=== PATIENT | male | born 1955 | race Caucasian/White ===

== ENCOUNTER 2020-10-02 13:14 | Observation (INO) ==
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
[~2020-10-02 13:14] MED LIST: ACETAMINOPHEN 500 MG TAB PO SCH; BUPIVACAINE 0.5 % 5 MG/1 ML PF 10ML VIAL ONE; FAMOTIDINE 20 MG TAB PO SCH; GABAPENTIN 300 MG CAP PO SCH; LR 15ML/HR IV SCH; METOCLOPRAMIDE HCL 10 MG TABLET PO SCH; ROPIVACAINE 0.5% 5 MG/ML 30 ML VIAL ONE; ROPIVACAINE 0.5% HCL/PF 150 MG, BUPIVACAINE 0.75% MPF 20 ML, EPINEPHrine 30MG/30ML (OR ... INFIL SCH; TRANEXAMIC ACID 1,000 MG **IV Intra-op IV SCH; TRANEXAMIC ACID 1,000 MG **IV Pre-op IV SCH; ceFAZolin 2000MG 2,000 MG/15 ML SYR IV SCH; ceFAZolin 3,000 MG in DEXTROSE 5% 50 ML IV SCH; dexAMETHasone 4 MG TAB PO SCH
[2020-10-02] MEDS ORDERED: MIDAZOLAM HCL 1 MG/ML 2ML VIAL ONE (13:23)
[2020-10-02] MEDS ORDERED: fentaNYL citrate 100 MCG/2 ML VIAL ONE (13:23)
[2020-10-02] MEDS ORDERED: LIDOCAINE HCL 2% 2 ML VIAL/AMP(20MG/ML) INFIL ONE (13:24)
[2020-10-02] MEDS ORDERED: PROPOFOL IV EMULSION 10 MG/ML 20 ML VIAL IV ONE (13:24)
[2020-10-02] MEDS ORDERED: ePHEDrine sulfate 50 MG/ML SYR ONE ×2 (13:24→15:33)
[2020-10-02] MEDS ORDERED: ceFAZolin 3000MG/72.5 ML BAG IV ONE (13:43)
--- NOTE | 2020-10-02 14:29 | History & Physical Bridge Note ---
Date of Service October 02, 2020 History & Physical Bridge Note I have examined the patient, reviewed the History & Physical and in the interval since the performance of the History & Physical I have noted the following changes of clinical significance: no changes noted
[2020-10-02] MEDS ORDERED: BACITRACIN INJ 50,000 UNIT VIAL ONE (14:37)
[2020-10-02] MEDS ORDERED: ORTHO JOINT ANESTHETIC ONE (14:43)
[2020-10-02] MEDS ORDERED: ePHEDrine sulfate 50 MG/ML AMP IV PRN (14:45)
[2020-10-02] MEDS ORDERED: fentaNYL citrate 100 MCG/2 ML VIAL IV PRN (14:45)
[2020-10-02] MEDS ORDERED: ONDANSETRON INJ 2 MG/ML 2 ML VIAL IV PRN ×2 (14:45→19:46)
[2020-10-02] MEDS ORDERED: ATROPINE SULFATE 0.1 MG/ML 10ML SYR IV PRN (14:45)
[2020-10-02] MEDS ORDERED: METOCLOPRAMIDE HCL INJ 5 MG/ML 2 ML VIAL IV PRN ×2 (14:45→19:46)
[2020-10-02] MEDS ORDERED: PROMETHAZINE HCL 12.5 MG in SODIUM CHLORIDE 0.9% 50 ML IV PRN (14:45)
[2020-10-02] MEDS ORDERED: HYDROmorphone INJ 2 MG/ML SYR/VIAL IV PRN (14:45)
[2020-10-02] MEDS ORDERED: HYDROmorphone INJ 2 MG/ML SYR/VIAL ONE (15:32)
[2020-10-02] MEDS ORDERED: DEXAMETHASONE SOD INJ 4 MG/ML VIAL ONE (15:33)
[2020-10-02] MEDS ORDERED: ONDANSETRON INJ 2 MG/ML 2 ML VIAL ONE (15:33)
[2020-10-02] MEDS ORDERED: GLYCOPYRROLATE 0.2 MG/ML VIAL ONE ×2 (15:33→16:44)
[2020-10-02] MEDS ORDERED: NEOSTIGMINE METHYLSULFATE 5 MG/5 ML SYR ONE (15:33)
[2020-10-02] MEDS ORDERED: PHENYLEPHRINE 100MCG/ML 5ML SYR ONE (15:33)
[2020-10-02] MEDS ORDERED: ROCURONIUM BROMIDE 10 MG/ML 5 ML VIAL IV ONE (15:33)
[2020-10-02] MEDS ORDERED: LARYING-O-JET KIT (LTA) ONE (15:49)
[2020-10-02] MEDS ORDERED: PHENYLEPHRINE HCL 10 MG/ML VIAL ONE (16:22)
[2020-10-02] MEDS ORDERED: SUGAMMADEX SODIUM 200 MG/2 ML VIAL IV ONE (17:16)
--- NOTE | 2020-10-02 17:40 | Operative Report ---
Post Operative Report Pre & Post Diagnosis Operation Date: 10/02/20 15:30 Pre-Op Diagnosis: OSTEOARTHRITIS, RIGHT KNEE, morbid obesity BMI 46 Post-Op Diagnosis: OSTEOARTHRITIS, RIGHT KNEE, morbid obesity BMI 46 I identified the patient and participated in the time-out.: Yes Procedure Operation Date: 10/02/20 15:30 Actual Procedures p Right Total Knee Arthroplasty, application superficial wound VAC, increased difficulty BMI 46- Adis Holloway MD Surgeon Adis Holloway MD Threader Operator Martin THURMAN Estimated Blood Loss 20 Findings Consistent with Post-Op Diagnosis Specimens Bone cuts Drains 2 Hemovac Anesthesia Type General Regional Complications none Disposition Accompanied Patient To Recovery: No Disposition: Recovery Room Indications 65-year-old male with severe end-stage osteoarthritis of the right knee failed conservative management. Radiographs demonstrate [id number] medial compartment he has tricompartmental osteoarthritis. Patient is a varus knee. Description of Procedure Patient was taken to the operating room placed supine on the operating table and anesthetized under regional block and general anesthesia. Exam under anesthesia demonstrated 0 through 125 degrees range of motion with large effusion and no pseudolaxity. The patient had an obese leg and had some chronic venous stasis changes distally. A pneumatic tourniquet was placed about the thigh of the obese upper thigh of the right lower extremity. The right lower extremity was prepped and draped in usual fashion. The leg was elevated exsanguinated with an Esmarch bandage and the pneumatic was raised to 350 mm mercury. An anterior incision was made across the right knee. The skin was incised longitudinally subcutaneous flaps were elevated and an incision was made through the medial retinaculum extending up into the mid third of the quadriceps tendon and extended down to the medial tibial tubercle. Intra-articular findings demonstrated tricompartmental osteoarthritis [id number] medial compartment chronic medial meniscus tear. Grade 4 medial facet patellofemoral OA. Multiple loose bodies.. The knee was exposed by excising the infrapatellar fat pad, excising the meniscal remnants, loose bodies and anterior cruciate ligament. Any inflamed synovial tissue was resected. The fat pad over the anterior femur was resected for placement of the component in that area. The lateral synovial bands were release. The femur was exposed. The custom femoral cutting block was pinned in position. The distal femoral cutting block was applied. The distal femoral cut was made with the oscillating saw. The size 10, 4-in-1 cutting block was placed. The anterior and posterior chamfer cuts were made. The knee was extended and a subperiosteal peel lateral release was performed around the patella. The patella width was measured and width was reproduced using freehand cut technique. The 35 x 9 millimeter symmetrical patella was used. 3 drill holes are made for the pegs. The tibia was exposed. A custom tibial cutting block was positioned and drill holes were made for the cutting guide. Cutting guide was placed and the proximal cut was made with the oscillating saw. All osteophytes were resected. The lamina form grader operator was used to assess ligamentous balance and the ligaments were balanced in extension and flexion. The tibia was reexposed and measured for a size G tibial component. I drilled holes into the sclerotic medial tibial plateau to enhance cement fixation. This was externally rotated in line with the tibial tubercle and the fixation pins were drilled. The proximal tibia was fashioned with the drill and punch. The size 10 CR femoral trial was inserted. The trial MC inserts were used. The 11 mm insert gave balanced ligaments through full range of motion. The patella tracked centrally. the trials were removed. The orthomix anesthetic cocktail was injected per protocol. The knee was then copiously irrigated with pulsatile lavage antibiotic solution with bacitracin. The final components were cemented with Simplex cement. The final components were persona 10 standard CR right femur, G tibia, left millimeter MC tibial polyethylene and a 35 x 9 symmetrical polyethylene patella. After the cement cured with the knee in full extension the Betadine soak was used per protocol. The knee joint was copiously irrigated with antibiotic solution with bacitracin. 2 drains were brought out laterally and connected to a Hemovac. The quadriceps tendon and medial retinaculum were closed with interrupted [id number] #1 Vicryl sutures. The knee was taken through a full range of motion and repair was secure. The subcutaneous tissues were closed with 2-0 Vicryl sutures and skin was closed with vicky. Stormy and Acticoat superficial wound VAC was applied and the patient tolerated the procedure well. There was an increased level difficulty due to morbid obesity and this resulted in a 25-minute increase surgical time. Martin THURMAN my physician reading assistant, assisted in soft tissue retraction instrument management leg positioning the closure of subcutaneous tissue and skin and application of superficial wound VAC and will participate in the postoperative care of the patient. I attest to the content of the Intraoperative Record and any orders documented therein. Any exceptions are noted below.
--- NOTE | 2020-10-02 18:17 | Anesthesiology Progress Note ---
Date of Service October 02, 2020 Anesthesia Post Procedure Vital Signs Vital Signs: Temp Pulse Resp BP BP Pulse Ox 10/02/20 18:10 88 14 114/72 99 10/02/20 18:00 94 H 14 115/67 99 10/02/20 17:53 36.7 C 101 H 12 122/60 98 10/02/20 14:10 79 20 144/104 H 96 10/02/20 13:45 36.6 C 90 18 173/97 H 98 Pain Intensity Back: Pain Intensity: 4 Transfer of Care Handoff Completed per policy Notes Mental Status: alert / awake / arousable and participated in evaluation Patient Amnestic to Procedure: Yes Nausea / Vomiting: adequately controlled Pain: adequately controlled Airway Patency, RR, SpO2: stable & adequate BP & HR: stable & adequate Hydration State: stable & adequate Anesthetic Complications: no major complications apparent and Pt Satisfied with anesthetic care
--- NOTE | 2020-10-02 18:18 | XRay Report ---
XR knee RT 1 or 2V routine CLINICAL HISTORY: Surgical Post Op COMPARISON: None. DISCUSSION: There are postsurgical changes of a total right knee arthroplasty and patellar resurfacin g. There are overlying skin vicky and surgical drains. The femoral tibial components appear well se ated. There is gas present within the soft tissues consistent with recent surgery. IMPRESSION: Postsurgical changes of a total right knee arthroplasty. ACT 112: Negative or not required by law. Electronically signed by: Larry Holden M.D. 10/02/2020 6:17 PM
[2020-10-02] MEDS ORDERED: MAGNESIUM HYDROXIDE SUSP 30 ML UDC PO PRN (19:46)
[2020-10-02] MEDS ORDERED: bisacodyL 10 MG SUPP PR PRN (19:46)
[2020-10-02] MEDS ORDERED: FUROSEMIDE 40 MG TAB PO PRN (19:46)
[2020-10-02] MEDS ORDERED: NALOXONE HCL 0.4 MG/1 ML VIAL/CARP IV PRN (19:46)
[2020-10-02] MEDS ORDERED: HYDROmorphone INJ 0.5 MG/0.5 ML SYR IV PRN (19:46)
[2020-10-02] MEDS ORDERED: PNEUMOCOCCAL ADMINISTRATION CHARGE ONE (20:08)
[2020-10-02] MEDS ORDERED: INFLUENZA ADMINISTRATION CHARGE ONE (20:08)
[2020-10-02] MEDS ORDERED: PNEUMOCOCCAL POLYSACCHARIDES 25 MCG/0.5 ML VIAL/SYR IM ONE (20:08)
[2020-10-02] MEDS ORDERED: INFLUENZA VACCINE HIGH DOSE 65+ 0.7 ML SYR IM ONE (20:08)
[2020-10-02] MEDS: oxyCODONE/ACETAMINOPHEN 5mg/325mg TAB PO PRN (21:17)
[2020-10-02] MEDS: oxyCODONE HCL 10 MG TABCR (OxyCONTIN) PO SCH (21:18)
[2020-10-02] MEDS: FLUTICASONE PROPIONATE NA SPR 16 GM BTL SCH (21:18)
[2020-10-02] MEDS: SODIUM CHLORIDE 0.9% 1000ML 1,000 ML IV SCH (21:20)
[2020-10-02] MEDS: DOCUSATE SODIUM 100 MG CAP PO SCH (21:21)
[2020-10-02] MEDS: NORTRIPTYLINE HCL 25 MG CAP PO SCH (21:21)
[2020-10-02] MEDS: SENNA 8.6 MG TAB PO SCH (21:22)
[2020-10-02] MEDS: SIMVASTATIN 20 MG TAB PO SCH (21:23)
[2020-10-02] MEDS: ceFAZolin 2000MG 2,000 MG/15 ML SYR IV SCH (22:15)
[2020-10-03] MEDS: oxyCODONE/ACETAMINOPHEN 5mg/325mg TAB PO PRN ×4 (04:21→23:33)
[2020-10-03] MEDS: SODIUM CHLORIDE 0.9% 1000ML 1,000 ML IV SCH (05:55)
[2020-10-03] MEDS: ceFAZolin 2000MG 2,000 MG/15 ML SYR IV SCH (05:56)
[2020-10-03] MEDS: LEVOTHYROXINE SODIUM 88 MCG TABLET PO SCH (05:56)
[2020-10-03 06:50] LABS: Hematocrit (blood only) 45.5 % (42-52); Mean Corpuscular Hemoglobin 27.5 pg (25-34); Mean Corpuscular Volume 83.3 fL (80-100); Mean Platelet Volume 10.4 fL (7.4-10.4); Platelet Count 207 K/uL (130-400); RDW Coefficient of Variation 14.5 % (11.5-14.5); RDW Standard Deviation 43.7 fL (36.4-46.3); Red Blood Count 5.46 M/uL (4.7-6.1); White Blood Count 13.89 K/uL (4.8-10.8)
--- NOTE | 2020-10-03 07:09 | Orthopedic Progress Note ---
Date of Service October 03, 2020 Assessment & Plan (1) S/P total knee arthroplasty: POD#1 Right TKA -Pain management-OxyContin 10mg BID, Percocet 5/325 Q4-6h -PT/OT -DVT prophylaxis-SCDs, TEDs, Xarelto 10mg daily -AM labs-hemoglobin at 15.1 this morning, chemistry pending -D/C planning-home with OPPT when stable. Will see how he does later today once block starts to wear off and how PT goes. Also will monitor drain output, was 350 overnight and another 75 this morning from [id number]. Admission and Anticipated Discharge Date Admission Date: October 02, 2020 Subjective Patient is POD#1 right TKA. He is doing well this morning, not having much pain. Anxious to go home. Denies complaints. No chest pain, sob, dizziness, headache, n/v/d, fever/chills. Review of Systems Review of Systems: All systems reviewed & are unremarkable except as noted in HPI & below Physical Exam Physical Exam: Right knee dressing is c/d/i. TERRY suctioning, hemovac in place. Toes are mobile with good dorsiflexion. No calf tenderness. Distally n/v status and sensation are intact. Constitutional: well developed and well nourished; no acute distress Results & Data ([facility]) Vital Signs (Past 12 Hours) Vital Signs Temp Pulse Pulse Resp BP Pulse Ox 10/03/20 04:16 37.1 C 105 H 18 143/79 H 96 10/02/20 22:28 37.1 C 116 H 18 134/68 94 10/02/20 21:34 36.5 C 110 H 18 143/79 H 97 10/02/20 20:40 36.7 C 110 H 18 187/93 H 96 10/02/20 20:05 36.5 C 90 18 146/77 H 996 H 10/02/20 19:40 36.7 C 90 16 133/73 96 10/02/20 19:10 37.2 C 88 19 139/84 97 Laboratory Results H & H 10/03/20 Range/Units 05:51 Hgb 15.0 (14.0-18.0) g/dL Hct 45.5 (42-52) % (1) S/P total knee arthroplasty Laterality: right Qualified Code(s): Z96.651 - Presence of right artificial knee joint
[2020-10-03 07:20] LABS: BUN Creatinine Ratio 17.9 (10-20); Creatinine Clr Calc Pharmacy 65.2 ml/min; Est GFR (African American) 55.5; Est GFR (Non-African American) 47.9; Potassium 4.7 mmol/L (3.5-5.1)
[2020-10-03] MEDS: DOCUSATE SODIUM 100 MG CAP PO SCH ×2 (07:48→20:34)
[2020-10-03] MEDS: METOPROLOL SUCC 25MG EXT REL TAB PO SCH (07:48)
[2020-10-03] MEDS: oxyCODONE HCL 10 MG TABCR (OxyCONTIN) PO SCH ×2 (07:48→20:34)
[2020-10-03] MEDS: lisinopril 5 MG TAB PO SCH (07:48)
[2020-10-03] MEDS: MULTIVITAMIN TAB PO SCH (07:48)
[2020-10-03] MEDS: PANTOprazole 40 MG TAB PO SCH (07:48)
[2020-10-03] MEDS: CHOLECALCIFEROL 1,000 UNITS 25 MCG TAB PO SCH (07:49)
[2020-10-03] MEDS: CYANOCOBALAMIN 500 MCG TABLET (VITAMIN B-12) PO SCH (07:49)
[2020-10-03] MEDS: RIVAROXABAN 10 MG TABLET PO SCH (07:49)
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
[2020-10-03] MEDS: SENNA 8.6 MG TAB PO SCH (20:34)
[2020-10-03] MEDS: FLUTICASONE PROPIONATE NA SPR 16 GM BTL SCH (20:34)
[2020-10-03] MEDS: NORTRIPTYLINE HCL 25 MG CAP PO SCH (20:34)
[2020-10-03] MEDS: SIMVASTATIN 20 MG TAB PO SCH (20:34)
[2020-10-03] MEDS ORDERED: DOCUSATE SODIUM 100 MG CAP PO SCH (21:00)
[2020-10-04] MEDS: LEVOTHYROXINE SODIUM 88 MCG TABLET PO SCH (05:33)
[2020-10-04] MEDS: oxyCODONE/ACETAMINOPHEN 5mg/325mg TAB PO PRN (05:33)
[2020-10-04 07:26] LABS: Calcium 7.8 mg/dl (8.5-10.1); Creatinine Clr Calc Pharmacy 73.1 ml/min; Est GFR (African American) 63.7; Est GFR (Non-African American) 54.9; Potassium 4.3 mmol/L (3.5-5.1)
[2020-10-04] MEDS ORDERED: KETOROLAC TROMETHAMINE 15 MG/ML VIAL IM STA (07:52)
--- NOTE | 2020-10-04 07:59 | Orthopedic Progress Note ---
Date of Service October 04, 2020 Assessment & Plan (1) S/P total knee arthroplasty: POD#2 Right TKA -Pain management-OxyContin 10mg BID, Percocet 5/325 Q4-6h. Will add one dose of Toradol 15mg. -PT/OT -DVT prophylaxis-SCDs, TEDs, Xarelto 10mg daily -AM labs-creatinine at baseline at 1.3 -D/C planning-home with OPPT when stable. Will see how he does later today if pain better controlled, possible discharge today. Admission and Anticipated Discharge Date Admission Date: October 02, 2020 Subjective Patient is POD#2 right TKA. He is having a lot of pain this morning. states he had a rough night. He is on scheduled OxyContin, Percocet, and Dilaudid prn. Denies other complaints. No chest pain, sob, dizziness, headache, n/v/d, fever/chills. Review of Systems Review of Systems: All systems reviewed & are unremarkable except as noted in HPI & below Physical Exam Physical Exam: Right knee dressing is c/d/i. TERRY suctioning, hemovac in place. Toes are mobile with good dorsiflexion. No calf tenderness. Distally n/v status and sensation are intact. Constitutional: well developed and well nourished; no acute distress Results & Data ([facility]) Vital Signs (Past 12 Hours) Vital Signs Temp Pulse Resp BP Pulse Ox 10/04/20 00:19 36.7 C 80 18 131/70 94 (1) S/P total knee arthroplasty Laterality: right Qualified Code(s): Z96.651 - Presence of right artificial knee joint
[2020-10-04] MEDS: CYANOCOBALAMIN 500 MCG TABLET (VITAMIN B-12) PO SCH (08:20)
[2020-10-04] MEDS: oxyCODONE HCL 10 MG TABCR (OxyCONTIN) PO SCH (08:20)
[2020-10-04] MEDS: CHOLECALCIFEROL 1,000 UNITS 25 MCG TAB PO SCH (08:20)
[2020-10-04] MEDS: MULTIVITAMIN TAB PO SCH (08:21)
[2020-10-04] MEDS: RIVAROXABAN 10 MG TABLET PO SCH (08:21)
[2020-10-04] MEDS: PANTOprazole 40 MG TAB PO SCH (08:21)
[2020-10-04] MEDS: lisinopril 5 MG TAB PO SCH (08:21)
[2020-10-04] MEDS: METOPROLOL SUCC 25MG EXT REL TAB PO SCH (08:23)
[2020-10-04] MEDS: DOCUSATE SODIUM 100 MG CAP PO SCH (08:23)
[2020-10-04] MEDS: ACETAMINOPHEN 500 MG TAB PO SCH ×2 (09:45→13:51)
[2020-10-04] MEDS: oxyCODONE HCL IR 5 MG TAB (IMMEDIATE RELEASE) PO PRN ×2 (11:35→11:59)
--- NOTE | 2020-10-04 15:15 | Discharge Summary ---
Date of Service October 04, 2020 Admission HPI Per Admitting Provider 65 year old male with PMHx significant for HTN, high cholesterol, GERD, CKD3, lumbar pain on chronic pain medication presents with longstanding right knee pain. Pain is interfering with his ability to carry out normal daily activity. He has failed conservative measures including antiinflammatories and injections. He would like to proceed with right knee replacement. Patient denies headaches, sweats, fevers, chills, double vision, blurred vision, cough, sore throat, dysphagia, chest pain, sob, wheezing, n/v/d/c, numbness, tingling, fatigue, urinary symptoms, mood disorders. ROS positive for right knee pain and stiffness. Admission Exam Per Admitting Provider Constitutional: well developed and well nourished; no acute distress Eyes: PERRL, conjunctivae normal, anicteric sclerae ENMT: external ear and nose normal, oropharynx normal Neck: trachea midline, no thyromegaly Respiratory: normal respiratory effort, lungs clear to auscultation Cardiovascular: RRR, no murmur, no edema Musculoskeletal: Right knee: Tenderness medial joint line, mild effusion. ROM 0-135 degrees, stable to valgus and varus stress tests. Positive Tiffanie's Skin: no rashes, warm and dry Neurologic: patellar DTR's 2+ bilat, sensation intact Psychiatric: A+Ox3, euthymic affect Principal Diagnosis Right knee osteoarthritis, obesity, CKD, chronic back pain on chronic narcotic pain medication Discharge Exam Constitutional well developed and well nourished; no acute distress Eyes PERRL, conjunctivae normal, anicteric sclerae ENMT external ear and nose normal, oropharynx normal Neck trachea midline, no thyromegaly Respiratory normal respiratory effort, lungs clear to auscultation Cardiovascular RRR, no murmur, no edema Skin no rashes, warm and dry Neurologic patellar DTR's 2+ bilat, sensation intact Psychiatric A+Ox3, euthymic affect Discharge Data Allergies Allergy/AdvReac Type Severity Reaction Status Date / Time aspartame Allergy Severe Migraine Verified 10/02/20 13:28 atorvastatin [From Lipitor] Allergy Severe Headache Verified 10/02/20 13:28 ciprofloxacin [From Cipro] Allergy Severe GI UPSET Verified 10/02/20 13:28 sulfamethoxazole Allergy Severe Headache Verified 10/02/20 13:28 [From Bactrim] trimethoprim [From Bactrim] Allergy Severe Headache Verified 10/02/20 13:28 Consultations 09/27/20 12:29 Consult Hospitalist Routine 10/02/20 19:46 Consult Case Management - Discharge Planning Routine Procedures Performed Operation Date: 10/02/20 15:30 Actual Procedures p Right Total Knee Arthroplasty - Adis Holloway MD Ordered Studies 10/02/20 05:00 US - OR guided needle placemen Routine Hospital Course (1) S/P total knee arthroplasty: Patient presented for same day admission following right total knee arthroplasty on 10/02/20. He tolerated procedure well. The Patient had an uneventful hospital course. Post-operatively, his activity was progressed and well tolerated. They participated in PT with ambulation distance of 225 feet on POD#1 and 160 feet on POD#2. ROM of operative knee reached 70 degrees. Labs remained stable- lowest hemoglobin recorded: 15. [facility] were consulted for medical management during admission. On POD#2 he was having significant increase in knee pain. Added dose of Toradol and adjusted his pain medication, which helped. His pain controlled on oral medications. Please refer to daily progress notes and PT notes for complete details. After exam on , patient was felt to be stable for discharge home with plans for outpatient PT. Patient will f/u in the office in about 2 weeks for further evaluation including x-rays and incision check, sooner if having any issues or concerns. POD#2 Right TKA -Pain management-OxyContin 10mg BID, Percocet 5/325 Q4-6h. Will add one dose of Toradol 15mg. -PT/OT -DVT prophylaxis-SCDs, TEDs, Xarelto 10mg daily -AM labs-creatinine at baseline at 1.3 -D/C planning-home with OPPT when stable. Will see how he does later today if pain better controlled, possible discharge today. Lab Results 09/26/20 10/03/20 10/03/20 Range/Units 12:17 05:51 05:51 WBC 13.89 H (4.8-10.8) K/uL RBC 5.46 (4.7-6.1) M/uL Hgb 15.0 (14.0-18.0) g/dL Hct 45.5 (42-52) % MCV 83.3 (80-100) fL MCH 27.5 (25-34) pg MCHC 33.0 (32-36) g/dL RDW Std Deviation 43.7 (36.4-46.3) fL RDW Coeff of Jewel 14.5 (11.5-14.5) % Plt Count 207 (130-400) K/uL MPV 10.4 (7.4-10.4) fL Sodium (136-145) mmol/L Potassium (3.5-5.1) mmol/L Chloride (98-107) mmol/L Carbon Dioxide (21-32) mmol/L Anion Gap (3-11) BUN (7-18) mg/dl Creatinine (0.6-1.4) mg/dl Est Cr Clr Drug Dosing ml/min Est GFR ( Amer) Est GFR (Non-Af Amer) BUN/Creatinine Ratio (10-20) Glucose (70-99) mg/dl Calcium (8.5-10.1) mg/dl Hepatitis C Ab Screen Neg (Neg) Blood Type B Positive Antibody Screen NEGATIVE 10/03/20 10/04/20 Range/Units 05:51 05:59 WBC (4.8-10.8) K/uL RBC (4.7-6.1) M/uL Hgb (14.0-18.0) g/dL Hct (42-52) % MCV (80-100) fL MCH (25-34) pg MCHC (32-36) g/dL RDW Std Deviation (36.4-46.3) fL RDW Coeff of Jewel (11.5-14.5) % Plt Count (130-400) K/uL MPV (7.4-10.4) fL Sodium 136 137 (136-145) mmol/L Potassium 4.7 4.3 (3.5-5.1) mmol/L Chloride 105 105 (98-107) mmol/L Carbon Dioxide 26 29 (21-32) mmol/L Anion Gap 5.0 3.0 (3-11) BUN 27 H 28 H (7-18) mg/dl Creatinine 1.49 H 1.33 (0.6-1.4) mg/dl Est Cr Clr Drug Dosing 65.2 73.1 ml/min Est GFR ( Amer) 55.5 63.7 Est GFR (Non-Af Amer) 47.9 54.9 BUN/Creatinine Ratio 17.9 21.0 H (10-20) Glucose 129 H 94 (70-99) mg/dl Calcium 8.0 L 7.8 L (8.5-10.1) mg/dl Hepatitis C Ab Screen (Neg) Blood Type Antibody Screen Total Time Total Time Spent Total Time Spent (In Minutes): 20 Discharge Plan Discharge Items Patient Disposition: Home - Self-Care Reason For Visit: OSTEOARTHRITIS, RIGHT KNEE Discharge Diagnosis: Righ tknee osteoarthritis Activity: Per Instructions section Non-emergency contact: Surgeon Call non-emergency contact if: you have any medication questions, your pain is not controlled, your pain is worsening, your pain is concerning for you, you have a fever, your temperature is above 101, your wound has increased redness and your wound has increased drainage Follow-up/Referrals: Keith Guerrero [Primary Care Provider] - Diet: Regular Addtl Attending Provider Instructions: ACTIVITY RECOMMENDATIONS: SELF CARE INSTRUCTIONS AFTER TOTAL KNEE REPLACEMENT A. You may need to continue a physical therapy program after discharge from the hospital. There are several options available to you. Your doctor will assist you in selecting the best one for you. 1. An out-patient facility 2 to 3 times a week for therapy or home therapy. 2. Continue working on all exercises taught to you in the hospital. Your goals should be to increase bending of your knee to 90 degrees and beyond and to fully straighten your knee. B. You may progress at your own pace from walking with a walker or crutches to a cane; then to no assistive devices. C. Make walking a part of your daily routine. Be up as much as comfortable with rest periods throughout the day. Rest with leg elevation is very important. Use the ice wrap frequently for the first 3-4 weeks. D. There are no restrictions on activities. 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 E. Wear the long elastic stockings (ANNA hose) 20 hours a day for 2 weeks after surgery. They can be removed several times a day for laundering and for a bath. F. You may shower, no tub baths until cleared by your doctor. SPECIAL CARE INSTRUCTIONS: VERY IMPORTANT TO READ AND REVIEW A. There are a few signs you need to watch for after you are home. Call [facility] if you notice any of the followin. Increased severe knee pain. Some pain is expected especially when you exercise. 2. Increased swelling in your leg or knee; pain or swelling of the calf muscle in either lower leg. 3. Any fluid drainage from the incision. 4. Shortness of breath or chest pain. B. Please call [facility] at if you have any concerns or questions about your operation or recovery. The doctor or his nurse will return your call promptly. C. You must take antibiotics before dental work, bladder, bowel or other surgery. Your doctor will provide you with a permanent care to carry describing this precaution. IMPORTANT: * REMEMBER TO TAKE ASPIRIN, 81 MG, TWICE DAILY FOR 4 WEEKS UNLESS OTHERWISE DIRECTED. THIS IS YOUR BLOOD THINNER. * HIGH RISK PATIENTS MAY BE PRESCRIBED A STRONGER BLOOD THINNER. THIS WILL BE PROVIDED AT DISCHARGE. * CALL IF INCREASED PAIN, REDNESS, DRAINAGE OR FEVER GREATER THAT 101. * WEAR ANNA HOSE 20 HOURS PER DAY FOR 2 WEEKS. This is a large suction dressing covering your incision. This will help pull any excess drainage from the wound and allow your incision to heal properly. You may shower with this if you can keep the unit outside of the shower. If any bleeding or leakage is noted please call your doctor's office. This will remain on your incision for 7 days and then should be removed. This can be done yourself or by the home nursing staff if applicable. The entire unit is disposable once removed. Once removed, keep incision clean and dry. If redness or drainage is noted, please call your surgeon. FOLLOW UP VISIT: If appointment is not already scheduled: Please call [facility] to make a follow-up appointment for 2 weeks after your surgery at . Pending Studies at Discharge: No Stand-Alone Forms: My [employer], Opioid Pain Management, Smoking Cessation Medications and DC Order Prescriptions: New oxycodone [OxyContin] 10 mg Tablet,Oral Only,Ext.Rel.12 Hr 10 mg PO Q12 Qty: 10 RF: 0 Xarelto 10 mg Tablet 10 mg PO DAILY Qty: 30 RF: 0 naloxone 4 mg/actuation spray,non-aerosol 1 spray intranasal Q3M PRN (Reason: opioid overdose) Qty: 2 RF: 0 acetaminophen 500 mg tablet 1,000 mg PO Q8H Qty: 60 RF: 0 oxycodone 5 mg tablet 5 - 10 mg PO .Q4h-6h MDD 6 PRN (Reason: pain) Qty: 30 RF: 0 Continued lisinopril 5 mg tablet 5 mg PO QAM RF: 0 levothyroxine 88 mcg tablet 88 mcg PO QAM RF: 0 simvastatin 20 mg tablet 20 mg PO HS RF: 0 fluticasone propionate [Flonase Allergy Relief] 50 mcg/actuation spray,suspension 2 sprays INTNAS HS RF: 0 tadalafil [Cialis] 10 mg tablet 10 mg PO Q36H PRN (Reason: sexual activity) RF: 0 pantoprazole 40 mg tablet,delayed release (DR/EC) 40 mg PO QAM RF: 0 mecobalamin (vitamin B12) 1,000 mcg tablet,disintegrating 1,000 mcg SL QAM RF: 0 furosemide 40 mg tablet 40 mg PO DAILY PRN (Reason: ud) RF: 0 testosterone cypionate 300 mg IM .Q2W RF: 0 nortriptyline [Pamelor] 25 mg capsule 50 mg PO HS RF: 0 metoprolol succinate 25 mg tablet extended release 24 hr 25 mg PO QAM RF: 0 cholecalciferol (vitamin D3) 125 mcg (5,000 unit) capsule 5,000 units PO QAM RF: 0 Discontinued oxycodone-acetaminophen 5-325 mg tablet 1 tab PO .Q4-6H PRN (Reason: pain) RF: 0 nabumetone 500 mg tablet 500 mg PO BID PRN (Reason: Pain) RF: 0 ibuprofen 200 mg Tablet 200 mg PO Q6H PRN (Reason: Pain) RF: 0 Discharge Orders: Discharge Order (Routine); Ordered 10/04/20 Ordered By: Prateek Rosado/Other Patient Handouts: DVT Post Op Prevention, Preventing Deep Vein Thrombosis Admission Data Admit Date/Time: 10/02/20 17:52 Attending Provider: Adis Holloway Admit Provider: Adis Holloway Primary Care Provider: Keith Guerrero Other Providers: Dl Barajas. Other Interventions: Discharge Summary Assessment (RN) Last Done: 10/04/20 13:20
== END 2020-10-04 14:22 | disposition home or self-care (01) ==
LOC: 3N 13:14 → ASU 13:14

== ENCOUNTER 2023-10-27 05:14 | Observation (INO) ==
--- NOTE | 2023-09-10 12:06 | PAT Medication Instructions ---
Medication Instructions Date of Service September 10, 2023 Home Medications Medication Instructions Recorded naloxone 4 mg/actuation nasal spray 1 spray intranasal Q3M PRN opioid 10/04/20 overdose #2 ea mecobalamin (vitamin B12) 1,000 mcg disintegrating tablet,sublingual 1,000 mcg sublingual QAM pantoprazole 40 mg tablet,delayed release 40 mg PO QAM simvastatin 20 mg tablet 20 mg PO HS tadalafil 10 mg tablet (Cialis) 10 mg PO Q36H PRN sexual activity testosterone cypionate 300 mg IM .Q2W cholecalciferol (vitamin D3) 125 mcg (5,000 unit) capsule 5,000 units PO QAM metoprolol succinate 25 mg tablet,extended release 24 hr 37.5 mg PO QAM naloxone 4 mg/actuation nasal spray 1 spray intranasal Q3M PRN opioid overdose levothyroxine 175 mcg tablet 175 mcg PO QAM nortriptyline 25 mg capsule (Pamelor) See Rx Instructions PO HS PRN neuropathy semaglutide 0.25 mg or 0.5 mg (2 mg/1.5 mL) subcutaneous pen injector (Ozempic) 0.5 mg subcut .COMPLEX amlodipine 2.5 mg tablet 2.5 mg PO QAM lisinopril 5 mg tablet 5 mg PO BID oxycodone 10 mg tablet 10 mg PO Q4H Continue as directed naloxone 4 mg/actuation nasal spray 1 spray intranasal Q3M PRN opioid overdose (if needed) testosterone cypionate 300 mg IM .Q2W ASK your prescriber and surgeon nortriptyline 25 mg capsule (Pamelor) See Rx Instructions PO HS PRN neuropathy DO NOT take the morning of surgery mecobalamin (vitamin B12) 1,000 mcg disintegrating tablet,sublingual 1,000 mcg sublingual QAM tadalafil 10 mg tablet (Cialis) 10 mg PO Q36H PRN sexual activity cholecalciferol (vitamin D3) 125 mcg (5,000 unit) capsule 5,000 units PO QAM lisinopril 5 mg tablet 5 mg PO BID Take morning of surgery With a small sip of water, OTHERWISE NOTHING TO EAT OR DRINK AFTER MIDNIGHT: pantoprazole 40 mg tablet,delayed release 40 mg PO QAM metoprolol succinate 25 mg tablet,extended release 24 hr 37.5 mg PO QAM levothyroxine 175 mcg tablet 175 mcg PO QAM amlodipine 2.5 mg tablet 2.5 mg PO QAM oxycodone 10 mg tablet 10 mg PO Q4H Take evening before surgery simvastatin 20 mg tablet 20 mg PO HS tadalafil 10 mg tablet (Cialis) 10 mg PO Q36H PRN sexual activity (if needed) lisinopril 5 mg tablet 5 mg PO BID oxycodone 10 mg tablet 10 mg PO Q4H STOP 7 days prior to surgery semaglutide 0.25 mg or 0.5 mg (2 mg/1.5 mL) subcutaneous pen injector (Ozempic) 0.5 mg subcut .COMPLEX Other Notes If you have any questions please call us at [phone] or [phone] or [phone] or [phone]
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
--- OUTSIDE RECORDS SUMMARY | 2023-10-27 05:36 | External Medical Summary | Continuity of Care Document ---
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 Name Role Phone Urology - Urology Care Team Information Sort Worker Unavailable Wai Morris Care Team Information Sort Worker + [phone] Nephrology - Nephrology Care Team Information Re ceiver Unavailable Michel Nascimento MD Care Team Information Sort Worker [phone] Problems Active Problems Provider Date Obesity Keith Guerrero JR, DO Onset: 06/01/2015 Benign prostatic hyperplasia with outflow obstruction Keith Guerrero JR DO Onset: 06/01/2015 Mixed hyperlipidemia Keith Guerrero JR DO On set: 06/01/2015 Disorder of adrenal gland Keith Guerrero JR DO Onset: 03/06/2016 Idiopathic peripheral neuropathy Keith leong JR, DO Onset: 09/18/2016 Anemia Keith Guerrero JR DO Onset: 09/18/2016 Vitamin D deficiency Keith Guerrero JR, DO On set: 09/18/2016 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 Keith Guerrero JR DO Onset: 10/20/2017 Testicular hypofunction Keith Guerrero JR DO Onset: 02/18/2018 Hypothyroidism Keith Guerrero JR DO Onset: 02/18/2018 Essential hypertension Keith Guerrero JR DO Onset: 08/25/2018 Glucose level outside reference range Keith Guerrero JR DO Onset: 08/25/2018 Pericardial effusion Jaspal Miller MD Onset: 00 / Note: Document: 11/23/18 - C ardiology Consult Sciatica Keith Guerrero JR, DO Onset: 01/25/2020 Cobalamin deficiency Keith Guerrero JR, DO On set: 06/25/2021 Chronic kidney disease stage 2 Keith Guerrero JR, DO Onset: 10/29/2022 Note: Document: 10/28/22 - N ephrology Consult Metabolic syndrome X Keith Guerrero JR, DO On set: 11/20/2022 Social History Type Date Description Comments Sex Unknown Cigarette Use 09/17/2023 Quit - Age 28 Tobacco Use Reviewed: 09/17/23 Never Smoked Cigars Tobacco Use Reviewed: 09/17/23 Never Smoked A Pipe Smoking Status Reviewed: 09/17/23 Never Smoked A Pipe Smokeless Tobacco 09/17/2023 Never Used Smokeless To bacco ETOH Use Rarely consumes alcohol Recreational Drug Use Denies Drug Use Allergies and adverse reactions Active Allergies Criticality Reaction | Severity Comments Date Cipro Unable to assess criticality 03/08/2021 Bactrim Unable to assess criticality 03/08/2021 Aspartame Unable to assess criticality Nausea, Migraine 02/18/2023 Inactive Allergies NKDA Unable to assess criticality 2014 Medications Active Medications SIG Qnty Indications Order ing Provider Date Vitamin D (Ergocalciferol)5000 0Unit Capsules 1 by mouth weekly 8caps E55.9 Keith Guerrero JR, DO 09/17/2023 Oxycodone HXF15lt Tablets 1 tab by mouth every 4-6 hours as needed - do not exceed 6 per 24 hours (continuing therapy) 60tabs G60.8 Keith Guerrero JR, DO 03/20/2023 Levothyroxine Dpewvf372hyc Tablets Take 1 tablet by mouth once daily 90tabs E03.9 Keith Guerrero JR, DO 09/23/2022 Azelastine HCL (Nasal)0.1% Solution 1-2 squirts intranasal q12 hours 90ml R09.81 Keith Guerrero JR, DO 05/14/2022 Ozempic (0.25 Or 0.5 MG/Dose)2mg/3ML Solution Pen-Inject Inject 0.5MG Subcutaneously Once A Week 3units E88.81 Keith Guerrero JR, DO 06/25/2021 Nortriptyline RPC52nu Capsules take 2-4 capsules by mouth every night at bedtime for neuropathy 360caps G60.8 Keith Guerrero JR, DO 12/28/2019 Wsfpwrpahim25ux Tablets Take 1 tablet by mouth once daily 90tabs E78.2 Keith Guerrero JR, DO 05/27/2019 Yamxnnpq27hzc/0.5ML Suspension Rec one inj intramuscular 1units Keith Guerrero JR, DO 02/03/2019 Fluticasone Mgpcgexfwh25gyu/Act Suspension 2 sprays each nostril once daily 48gm J06.9 Keith Guerrero JR, DO 09/22/2018 Sfgxgc92yn Tablets 1 tablet every 36 hours as needed prior to intercourse 100tabs Reyna Flowers MD, PhD 08/25/[address] take 1 tablet by mouth once daily 90tabs K21.9 Keith Guerrero JR, DO 02/18/2018 Vitamin D3 Maximum Kzzeetpb4898Tbzt Capsules 1 by mouth every day OTC E55.9 Keith Guerrero JR, DO 10/20/2017 Vitamin B-12 [id number] Tablets ER 1 by mouth every day 30tabs D51.9 Mara Guerrero JR, DO 07/23/2016 Testosterone Cypionate 300mg Im q 2 weeks E29.1 Unknown /000 0 Metoprolol Succinate ER25mg Tablets ER 24HR Take 1 & 1/2 (One & One-Half) Tablets By Mouth Once Daily 45tabs I10 Keith Guerrero JR, DO Prbfpfgscc56yv Tablets 1 by mouth every day as needed for edema R60.9 Unknown Knrfrwcyzv2ng Tablets 1 by mouth every day 30tabs I10 Unknown /0 000 Amlodipine Besylate2.5mg Tablets 1 by mouth every day I10 Unknown /0 000 Immunizations CPT Code Status Date Vaccine Lot # [id number] Given 10/01/2021 Influenza Vaccine High Do se 0.5ML Age 65 & > [id number] 92928 Given 09/25/2021 Moderna Covid-1 9 Vaccine 50mcg Booster-EMR Doc Only [id number] 68708 Given 08/24/2021 Shingrix 16070 Given 06/22/2021 Shingrix 63324 Given 01/06/2021 Moderna Sars-Co v-2 (Cov-19) vacc,100 mcg/ 0.5 mL 12Y+EMR Doc Only [id number] 06911 Given 12/07/2020 Moderna Sars-Co v-2 (Cov-19) vacc,100 mcg/ 0.5 mL 12Y+EMR Doc Only [id number] 58326 Given 08/09/2020 Pneumococcal Vaccine/Pneu movax 23 [id number] 70698 Given 08/09/2020 Influenza Vaccine High Do se 0.5ML Age 65 & > [id number] 14579 Given 08/25/2018 Pneumococcal Conjugate-Pr evnar 13 [id number] 91098 Given 08/25/2018 Influenza Vac, Split, Preservative Free High Dose Age 65 & > [id number] 20673 Given 12/15/2017 Tdap (Tetanus, diphtheria & acel. pertussis) Adacel or Boostrix [id number] 58266 Given 07/08/2017 Influenza Virus Vaccine, Quadrivalent, Im Use [id number] 44795 Given 09/18/2016 Influenza Virus Vaccine, Quadrivalent, Im Use [id number] 85580 Given 06/09/2015 Zostavax Vaccine [id number] 27687 Given 06/09/2015 Zostavax-PT Supplied 42081 Given 07/18/2014 Influenza Virus Vaccine, Quadrivalent, Im Use 70400 Refused 09/17/2023 Influenza Vaccine High Do se 0.5ML Age 65 & > [id number] Refused 08/21/2020 Shingrix [id number] Refused 07/08/2017 Tdap (Tetanus, diphtheria & acel. pertussis) Adacel or Boostrix [id number] Refused 05/16/2016 Influenza Virus Vaccine, Quadrivalent, Im Use [id number] Refused 04/18/2016 Influenza Virus Vaccine, Quadrivalent, Im Use 62391 Refused 04/11/2016 Influenza Virus Vaccine, Quadrivalent, Im Use [id number] Refused 06/01/2015 Influenza Virus Vaccine, Quadrivalent, Im Use Vital Signs Date Vital Result Comment 09/17/2023 1:27pm BP Systolic 126 mmHg BP Diastolic 82 mmHg Body Temperature 97.6 F Heart Rate 72 /min Respiratory Rate 16 /min Weight 257.00 lb Weight 116.575 kg 06/04/2023 1:49pm BP Systolic 134 mmHg BP Diastolic 74 mmHg Body Temperature 98.2 F Heart Rate 74 /min Respiratory Rate 16 /min Weight 262.00 lb Weight 118.843 kg Results Test Acquired Date Facility Test Result H/L Range N ote BMP 09/03/2023 [facility] [address] [place], [place] [id number] [phone] Glucose 98 mg/dL 70-110 BUN 33 mg/dL High 6-25 Creatinine 1.7 mg/dL High 0.7-1.3 Sodium 140 mEq/L 135-145 Potassium 4.8 mEq/L 3.5-5.0 Chloride 102 mEq/L 95-107 Co-2 28 mEq/L 24-31 Calcium 9.0 mg/dL 8.5-10.6 GFR 43 ML/MIN/1.73SQM Low >60 Lipid 09/03/2023 [facility] [address] [place], [place] [id number] [phone] Cholesterol 120 mg/dL 0-200 1 Triglyceride 141 mg/dL 0-150 2 HDLD 35 mg/dL See Comment 3 Measured LDL 69 mg/dL 0-130 4 Calc VLDL 28.2 mg/dL See Comment 5 Chol/HDL 3.4 RATIO See Comment 6 Non-HDL 85 mg/dL See Comment 7 Hepatic 09/03/2023 [facility] [address] [place], [place] [id number] [phone] Alk Phos 42 IU/L Low 43-122 Alt(SGPT) 14 IU/L 10-40 Ast(Sgot) 14 IU/L 3-42 T.Bilirubin 0.4 mg/dL 0.1-1.3 D.Bilirubin 0.1 mg/dL 0.0-0.3 Tot.Protein 5.9 g/dL 5.8-8.0 Albumin 3.9 g/dL 3.0-5.2 Laboratory test finding 09/03/2023 [facility] [address] [place], [place] [id number] [phone] TSH 0.97 uIU/mL 0.50-6.00 VB12 914 pg/mL 230-1050 Vitd-25Oh 28 ng/mL Low 30-100 CBC W/Diff 09/03/2023 [facility] [address] [place] [address] [phone] WBC 7.8 10^3/M3 3.1-9.2 RBC 5.96 10^6/M3 High 4.00-5.80 HGB 16.9 GR/DL 12.5-17.5 HCT 50.5 % 37.5-52.5 MCV 84.7 CUMICR 82.6-95.8 MCH 28.3 PICOGR 27.9-32.9 MCHC 33.4 % 32.6-35.4 RDW 14.7 % High 11.4-14.6 PLT 181 10^3/M3 140-350 MPV 7.8 CUMICR 7.0-10.6 %Neut 65.5 % 40.0-75.0 %Lymph 21.5 % 17.0-45.0 %[place] 7.9 % 1.0-11.0 %Eos 4.4 % 0.0-6.0 %Baso 0.7 % 0.0-2.0 #Neut 5.1 10^3/M3 1.5-8.0 #Lymph 1.7 10^3/M3 0.8-3.2 #[place] 0.6 10^3/M3 0.0-0.8 #Eos 0.3 10^3/m3 0.0-0.4 #Baso 0.1 10^3/m3 0.0-0.2 Laboratory test finding 09/03/2023 [facility] [address] [place], [place] [id number] [phone] FRT4 0.79 ng/dL 0.75-1.54 BMP 05/28/2023 [facility] [address] [place] [address] [phone] Glucose 89 mg/dL 70-110 BUN 28 mg/dL High 6-25 Creatinine 1.6 mg/dL High 0.7-1.3 Sodium 137 mEq/L 135-145 Potassium 5.0 mEq/L 3.5-5.0 Chloride 99 mEq/L 95-107 Co-2 29 mEq/L 24-31 Calcium 9.7 mg/dL 8.5-10.6 GFR 46 ML/MIN/1.73SQM Low >60 Lipid 05/28/2023 [facility] [address] [place] [address] [phone] Cholesterol 173 mg/dL 0-200 8 Triglyceride 173 mg/dL High 0-150 9 HDLD 38 mg/dL See Comment 10 Measured LDL 117 mg/dL 0-130 11 Calc VLDL 34.6 mg/dL See Comment 12 Chol/HDL 4.6 RATIO See Comment 13 Non-HDL 135 mg/dL See Comment 14 Hepatic 05/28/2023 [facility] [address] [place] [address] [phone] Alk Phos 43 IU/L 43-122 Alt(SGPT) 22 IU/L 10-40 Ast(Sgot) 20 IU/L 3-42 T.Bilirubin 0.4 mg/dL 0.1-1.3 D.Bilirubin 0.1 mg/dL 0.0-0.3 Tot.Protein 6.3 g/dL 5.8-8.0 Albumin 4.3 g/dL 3.0-5.2 Laboratory test finding 05/28/2023 [facility] [address] [place], [place] [id number] [phone] TSH 0.94 uIU/mL 0.50-6.00 VB12 636 pg/mL 230-1050 Vitd-25Oh 27 ng/mL Low 30-100 CBC W/Diff 05/28/2023 [facility] [address] [place] [address] [phone] WBC 6.5 10^3/M3 3.1-9.2 RBC 6.17 10^6/M3 High 4.00-5.80 HGB 17.3 GR/DL 12.5-17.5 HCT 52.9 % High 37.5-52.5 MCV 85.7 CUMICR 82.6-95.8 MCH 28.0 PICOGR 27.9-32.9 MCHC 32.7 % 32.6-35.4 RDW 14.4 % 11.4-14.6 PLT 194 10^3/M3 140-350 MPV 8.1 CUMICR 7.0-10.6 %Neut 53.6 % 40.0-75.0 %Lymph 33.6 % 17.0-45.0 %[place] 8.9 % 1.0-11.0 %Eos 3.2 % 0.0-6.0 %Baso 0.7 % 0.0-2.0 #Neut 3.5 10^3/M3 1.5-8.0 #Lymph 2.2 10^3/M3 0.8-3.2 #[place] 0.6 10^3/M3 0.0-0.8 #Eos 0.2 10^3/m3 0.0-0.4 #Baso 0.0 10^3/m3 0.0-0.2 Laboratory test finding 05/28/2023 [facility] [address] [place] [address] [phone] FRT4 0.88 ng/dL 0.75-1.54 1 CHOLESTEROL Less than 200mg/dl Low risk 201-239 mg/dl Borderline risk Equal to or greater 240mg/dl High risk 2 TRIGLYCERIDES Less than 150mg/dl Normal 150-199mg/dl Borderline 200-499mg/dl High Greater than 500mg/dl Very High 3 HDL <40mg/dl Elevated Risk 41-59mg/dl Risk >=60mg/dl Least Risk 4 LDL <100mg/dl Optimal 100-129mg/dl Near Optimal 130-159mg/dl Borderline High 160-189mg/dl High >=190 Very High 5 VLDL Less than 30mg/dl Normal 6 CHOL/HDL <4.0 Optimal 4.0-5.0 Borderline >6.0 High Risk 7 NON-HDL 30mg/dl higher than LDL Target 8 CHOLESTEROL Less than 200mg/dl Low risk 201-239 mg/dl Borderline risk Equal to or greater 240mg/dl High risk 9 TRIGLYCERIDES Less than 150mg/dl Normal 150-199mg/dl Borderline 200-499mg/dl High Greater than 500mg/dl Very High 10 HDL <40mg/dl Elevated Risk 41-59mg/dl Risk >=60mg/dl Least Risk 11 LDL <100mg/dl Optimal 100-129mg/dl Near Optimal 130-159mg/dl Borderline High 160-189mg/dl High >=190 Very High 12 VLDL Less than 30mg/dl Normal 13 CHOL/HDL <4.0 Optimal 4.0-5.0 Borderline >6.0 High Risk 14 NON-HDL 30mg/dl higher than LDL Target Procedures Date Code Description Status 09/17/2023 3079F PVRP Diastolic BP 80-89 MMHG Completed 09/17/2023 3074F PVRP Systolic BP <130 mmHg C ompleted 09/03/2023 77689 Venipuncture Routine Complet ed 06/04/2023 3078F PVRP Diastolic BP <80 mmHg C ompleted 06/04/2023 3075F PVRP Systolic BP 130 To 139 MMHG Completed 05/28/2023 32445 Venipuncture Routine Complet ed Medical Devices Description No Information Available Encounters Type Date Location Provider Dx Diagnosis Office Visit 09/17/2023 1:30p Eugenia Guerrero JR, DO I10 Essential (primary) hypertension E78.2 Mixed hyperlipidemia E03.9 Hypothyroidism, unsp ecified D51.9 Vitamin B12 deficien cy anemia, unspecified E55.9 Vitamin D deficiency , unspecified G60.8 Other hereditary and idiopathic neuropathies Z01.818 Encounter for other preprocedural examination Office Visit 06/04/2023 2:00p Eugenia Guerrero JR, DO I10 Essential (primary) hypertension E78.2 Mixed hyperlipidemia E03.9 Hypothyroidism, unsp ecified E88.81 Metabolic syndrome a nd other insulin resistance G60.8 Other hereditary and idiopathic neuropathies N18.30 Chronic kidney disea se, stage 3 unspecified Assessments Date Code Description Provider 09/17/2023 I10 Essential (primary) hyperten pelon Keith Guerrero JR, DO 09/17/2023 E78.2 Mixed hyperlipidemia Keith Guerrero JR, DO 09/17/2023 E03.9 Hypothyroidism, unspecified Keith Guerrero JR, DO 09/17/2023 D51.9 Vitamin B12 defi ciency anemia, unspecified Keith Guerrero JR, DO 09/17/2023 E55.9 Vitamin D deficiency, unspec ified Keith Guerrero JR, DO 09/17/2023 G60.8 Other hereditary and idiopathic neuropathies Keith Guerrero JR, DO 09/17/2023 Z01.818 Encounter for ot her preprocedural examination Keith Guerrero JR, DO 09/03/2023 E78.2 Mixed hyperlipidemia Keith Guerrero JR, DO 09/03/2023 E78.2 Mixed hyperlipidemia [facility] [place] 09/03/2023 E55.9 Vitamin D deficiency, unspec ified Keith Guerrero JR, DO 09/03/2023 E55.9 Vitamin D deficiency, unspec ified Lab - [place] 09/03/2023 D51.9 Vitamin B12 defi ciency anemia, unspecified Keith Guerrero JR, DO 09/03/2023 D51.9 Vitamin B12 defi ciency anemia, unspecified Lab - [place] 09/03/2023 E03.9 Hypothyroidism, unspecified Keith Guerrero JR, DO 09/03/2023 E03.9 Hypothyroidism, unspecified Lab - [place] 06/04/2023 I10 Essential (primary) hyperten pelon Keith Guerrero JR, DO 06/04/2023 E78.2 Mixed hyperlipidemia Keith Guerrero JR, DO 06/04/2023 E03.9 Hypothyroidism, unspecified Keith Guerrero JR, DO 06/04/2023 E88.81 Metabolic syndrome Keith Guerrero JR, DO 06/04/2023 G60.8 Other hereditary and idiopathic neuropathies Keith Guerrero JR, DO 06/04/2023 N18.30 Chronic kidney d isease, stage 3 unspecified Keith Guerrero JR, DO 05/28/2023 E78.2 Mixed hyperlipidemia Keith Guerrero JR, DO 05/28/2023 E78.2 Mixed hyperlipidemia Lab [place] 05/28/2023 E55.9 Vitamin D deficiency, unspec ified Keith Guererro JR, DO 05/28/2023 E55.9 Vitamin D deficiency, unspec ified Lab - [place] 05/28/2023 D51.9 Vitamin B12 defi ciency anemia, unspecified Keith Guerrero JR, DO 05/28/2023 D51.9 Vitamin B12 defi ciency anemia, unspecified Lab - [place] 05/28/2023 E03.9 Hypothyroidism, unspecified Keith Guerrero JR, DO 05/28/2023 E03.9 Hypothyroidism, unspecified Lab - [place] Plan of Treatment Future Appointment(s):* 12/24/2023 1:30 pm - Keith Guerrero JR DO at [place] * 12/17/2023 8:45 am - [facility] [place] 09/17/2023 - Keith Guerrero JR, DO* I10 Essential (primary) hypertension * E78.2 Mixed hyperlipidemia * E03.9 Hypothyroidism, unspecified * D51.9 Vitamin B12 deficiency anemia, unspecified * E55.9 Vitamin D deficiency, unspecified* New Medication:* Vitamin D (Ergocalciferol) 99421 Unit - 1 by mouth weekly * G60.8 Other hereditary and idiopathic neuropathies * Z01.818 Encounter for other preprocedural examination * All* Follow up:* follow-up in three months unless otherwise noted. * Immunizations/Injections:* Sarscov2 Vaccine 50 mcg/0.5 ML For Im Use 12 Yrs And Older Functional Status Description No Information Available Mental Status Description No Information Available Referrals Description No Information Available"
--- OUTSIDE RECORDS SUMMARY | 2023-10-27 05:36 | External Medical Summary ---
"Continuity of Care Document (CCD) Created on: September 17, 2023 Jay Mckee External Reference #: [id number] : [id number] Sex: Male Author Name Unknown Organization [facility] Address [address], [place] [address] Phone [phone] Care Team Providers Care Bobbin Marker Name Role Phone Urology - Urology Care Team Information Manager Games Unavailable Wai Morris Care Team Information Manager Games [phone] Nephrology - Nephrology Care Team Information Re ceiver Unavailable Michel Nascimento MD Care Team Information Manager Games [phone] Problems Active Problems Provider Date Obesity Keith [...] Document: 11/23/18 - C ardiology Consult Sciatica Keiht Guerrero JR, DO Onset: 01/25/2020 Cobalamin deficiency [...] E55.9 Keith Guerrero JR, DO 09/17/2023 Oxycodone HZI09xy Tablets 1 tab by mouth every 4-6 hours as needed - do not exceed 6 per 24 hours (continuing therapy) 60tabs G60.8 Keith Guerrero JR, DO 03/20/2023 Levothyroxine Khslzm458tnf Tablets Take 1 tablet by mouth once daily 90tabs E03.9 Keith Guerrero JR, DO 09/23/2022 Azelastine HCL (Nasal)0.1% Solution 1-2 squirts intranasal q12 hours 90ml R09.81 Keith Guerrero JR, DO 05/14/2022 Ozempic (0.25 Or 0.5 MG/Dose)2mg/3ML Solution Pen-Inject Inject 0.5MG Subcutaneously Once A Week 3units E88.81 Keith Guerrero JR, DO 06/25/2021 Nortriptyline NVM02mo Capsules take 2-4 capsules by mouth every night at bedtime for neuropathy 360caps G60.8 Keith Guerrero JR, DO 12/28/2019 Vclubdblgdw81uu Tablets Take 1 tablet by mouth once daily 90tabs E78.2 Keith Guerrero JR, DO 05/27/2019 Zscbikrr49spm/0.5ML Suspension Rec one inj intramuscular 1units Keith Guerrero JR, DO 02/03/2019 Fluticasone Ipqhrmvolq26jpa/Act Suspension 2 sprays each nostril once daily 48gm J06.9 Keith Guerrero JR, DO 09/22/2018 Wlskrq77eo Tablets 1 tablet every 36 hours as needed prior to intercourse 100tabs Reyna Flowers MD, PhD 08/25/[address] take 1 tablet by mouth once daily 90tabs K21.9 Keith Guerrero JR, DO 02/18/2018 Vitamin D3 Maximum Boritrvo0272Kmrm Capsules 1 by mouth every day OTC E55.9 Keith Guerrero JR, DO 10/20/2017 Vitamin B-12 NA5217htj Tablets ER 1 by mouth every day 30tabs D51.9 Mara Guerrero JR, DO 07/23/2016 Testosterone Cypionate 300mg Im q 2 weeks E29.1 Unknown /000 0 Metoprolol Succinate ER25mg Tablets ER 24HR Take 1 & 1/2 (One & One-Half) Tablets By Mouth Once Daily 45tabs I10 Keith Guerrero JR, DO Ihtlhedagk73av Tablets 1 by mouth every day as needed for edema R60.9 Unknown Tbhkomekam2bk Tablets 1 by mouth every day 30tabs I10 Unknown /0 000 Amlodipine Besylate2.5mg Tablets 1 by mouth every day I10 Unknown /0 000 Immunizations CPT Code Status Date Vaccine Lot # [id number] Given 10/01/2021 Influenza Vaccine High Do se 0.5ML Age 65 & > [id number] 71809 Given 09/25/2021 Moderna Covid-1 9 Vaccine 50mcg Booster-EMR Doc Only [id number] 92408 Given 08/24/2021 Shingrix 16459 Given 06/22/2021 Shingrix 48113 Given 01/06/2021 Moderna Sars-Co v-2 (Cov-19) vacc,100 mcg/ 0.5 mL 12Y+EMR Doc Only [id number] 84321 Given 12/07/2020 Moderna Sars-Co v-2 (Cov-19) vacc,100 mcg/ 0.5 mL 12Y+EMR Doc Only [id number] 15856 Given 08/09/2020 Pneumococcal Vaccine/Pneu movax 23 [id number] 91515 Given 08/09/2020 Influenza Vaccine High Do se 0.5ML Age 65 & > [id number] 31777 Given 08/25/2018 Pneumococcal Conjugate-Pr evnar 13 [id number] 39982 Given 08/25/2018 Influenza Vac, Split, Preservative Free High Dose Age 65 & > [id number] 89449 Given 12/15/2017 Tdap (Tetanus, diphtheria & acel. pertussis) Adacel or Boostrix [id number] 05458 Given 07/08/2017 Influenza Virus Vaccine, Quadrivalent, Im Use [id number] 32933 Given 09/18/2016 Influenza Virus Vaccine, Quadrivalent, Im Use [id number] 10095 Given 06/09/2015 Zostavax Vaccine [id number] 40087 Given 06/09/2015 Zostavax-PT Supplied 64638 Given 07/18/2014 Influenza Virus Vaccine, Quadrivalent, [place] Use [id number] Refused 09/17/2023 Influenza Vaccine High Do se 0.5ML Age 65 & > [id number] Refused 08/21/2020 Shingrix 42841 Refused 07/08/2017 Tdap (Tetanus, diphtheria & acel. pertussis) Adacel or Boostrix 79504 Refused 05/16/2016 Influenza Virus Vaccine, Quadrivalent, Im Use 11529 Refused 04/18/2016 Influenza Virus Vaccine, Quadrivalent, Im Use 60536 Refused 04/11/2016 Influenza Virus Vaccine, Quadrivalent, Im Use 98730 Refused 06/01/2015 Influenza Virus Vaccine, Quadrivalent, Im [...] Result H/L Range N ote BMP 09/03/2023 [facility] [address] [place], [place] [id number] [phone] Glucose 98 mg/dL 70-110 BUN 33 mg/dL High 6-25 Creatinine 1.7 mg/dL High 0.7-1.3 Sodium 140 mEq/L 135-145 Potassium 4.8 mEq/L 3.5-5.0 Chloride 102 mEq/L 95-107 Co-2 28 mEq/L 24-31 Calcium 9.0 mg/dL 8.5-10.6 GFR 43 ML/MIN/1.73SQM Low >60 Lipid 09/03/2023 [facility] [address] [place], [place] [id number] [phone] Cholesterol 120 mg/dL 0-200 1 Triglyceride 141 mg/dL 0-150 2 HDLD 35 mg/dL See Comment 3 Measured LDL 69 mg/dL 0-130 4 Calc VLDL 28.2 mg/dL See Comment 5 Chol/HDL 3.4 RATIO See Comment 6 Non-HDL 85 mg/dL See Comment 7 Hepatic 09/03/2023 [facility] [address] [place], [place] [id number] [phone] Alk Phos 42 IU/L Low 43-122 Alt(SGPT) 14 IU/L 10-40 Ast(Sgot) 14 IU/L 3-42 T.Bilirubin 0.4 mg/dL 0.1-1.3 D.Bilirubin 0.1 mg/dL 0.0-0.3 Tot.Protein 5.9 g/dL 5.8-8.0 Albumin 3.9 g/dL 3.0-5.2 Laboratory test finding 09/03/2023 [facility] [address] [place], [place] [id number] [phone] TSH 0.97 uIU/mL 0.50-6.00 VB12 914 pg/mL 230-1050 Vitd-25Oh 28 ng/mL Low 30-100 CBC W/Diff 09/03/2023 [facility] [address] [place] [address] [phone] WBC 7.8 10^3/M3 3.1-9.2 RBC 5.96 10^6/M3 High 4.00-5.80 HGB 16.9 GR/DL 12.5-17.5 HCT 50.5 % 37.5-52.5 MCV 84.7 CUMICR 82.6-95.8 MCH 28.3 PICOGR 27.9-32.9 MCHC 33.4 % 32.6-35.4 RDW 14.7 % High 11.4-14.6 PLT 181 10^3/M3 140-350 MPV 7.8 CUMICR 7.0-10.6 %Neut 65.5 % 40.0-75.0 %Lymph 21.5 % 17.0-45.0 %Mills 7.9 % 1.0-11.0 %Eos 4.4 % 0.0-6.0 %Baso 0.7 % 0.0-2.0 #Neut 5.1 10^3/M3 1.5-8.0 #Lymph 1.7 10^3/M3 0.8-3.2 #Mills 0.6 10^3/M3 0.0-0.8 #Eos 0.3 10^3/m3 0.0-0.4 #Baso 0.1 10^3/m3 0.0-0.2 Laboratory test finding 09/03/2023 [facility] [address] [place], [place] [id number] [phone] FRT4 0.79 ng/dL 0.75-1.54 BMP 05/28/2023 [facility] [address] [place] [address] [phone] Glucose 89 mg/dL 70-110 BUN 28 mg/dL High 6-25 Creatinine 1.6 mg/dL High 0.7-1.3 Sodium 137 mEq/L 135-145 Potassium 5.0 mEq/L 3.5-5.0 Chloride 99 mEq/L 95-107 Co-2 29 mEq/L 24-31 Calcium 9.7 mg/dL 8.5-10.6 GFR 46 ML/MIN/1.73SQM Low >60 Lipid 05/28/2023 [facility] [address] [place] [address] [phone] Cholesterol 173 mg/dL 0-200 8 Triglyceride 173 mg/dL High 0-150 9 HDLD 38 mg/dL See Comment 10 Measured LDL 117 mg/dL 0-130 11 Calc VLDL 34.6 mg/dL See Comment 12 Chol/HDL 4.6 RATIO See Comment 13 Non-HDL 135 mg/dL See Comment 14 Hepatic 05/28/2023 [facility] [address] [place] [address] [phone] Alk Phos 43 IU/L 43-122 Alt(SGPT) 22 IU/L 10-40 Ast(Sgot) 20 IU/L 3-42 T.Bilirubin 0.4 mg/dL 0.1-1.3 D.Bilirubin 0.1 mg/dL 0.0-0.3 Tot.Protein 6.3 g/dL 5.8-8.0 Albumin 4.3 g/dL 3.0-5.2 Laboratory test finding 05/28/2023 [facility] [address] [place], [place] [address] [phone] TSH 0.94 uIU/mL 0.50-6.00 VB12 636 pg/mL 230-1050 Vitd-25Oh 27 ng/mL Low 30-100 CBC W/Diff 05/28/2023 [facility] [address] [place] [address] [phone] WBC 6.5 10^3/M3 3.1-9.2 RBC 6.17 10^6/M3 High 4.00-5.80 HGB 17.3 GR/DL 12.5-17.5 HCT 52.9 % High 37.5-52.5 MCV 85.7 CUMICR 82.6-95.8 MCH 28.0 PICOGR 27.9-32.9 MCHC 32.7 % 32.6-35.4 RDW 14.4 % 11.4-14.6 PLT 194 10^3/M3 140-350 MPV 8.1 CUMICR 7.0-10.6 %Neut 53.6 % 40.0-75.0 %Lymph 33.6 % 17.0-45.0 %Mills 8.9 % 1.0-11.0 %Eos 3.2 % 0.0-6.0 %Baso 0.7 % 0.0-2.0 #Neut 3.5 10^3/M3 1.5-8.0 #Lymph 2.2 10^3/M3 0.8-3.2 #Mills 0.6 10^3/M3 0.0-0.8 #Eos 0.2 10^3/m3 0.0-0.4 #Baso 0.0 10^3/m3 0.0-0.2 Laboratory test finding 05/28/2023 [facility] [address] [place] [address] [phone] FRT4 0.88 ng/dL 0.75-1.54 1 CHOLESTEROL Less [...] Systolic BP <130 mmHg C ompleted 09/03/2023 45077 Venipuncture Routine Complet ed 06/04/2023 3078F PVRP Diastolic BP <80 mmHg C ompleted 06/04/2023 3075F PVRP Systolic BP 130 To 139 MMHG Completed 05/28/2023 93241 Venipuncture Routine Complet ed Medical Devices Description [...] Vitamin D deficiency, unspec ified Lab - [facility] 09/03/2023 D51.9 Vitamin B12 defi ciency anemia, unspecified Keith Guerrero JR, DO 09/03/2023 D51.9 Vitamin B12 defi ciency anemia, unspecified Lab - [facility] 09/03/2023 E03.9 Hypothyroidism, unspecified Keith Guerrero JR, DO 09/03/2023 E03.9 Hypothyroidism, unspecified Lab - [facility] 06/04/2023 I10 Essential (primary) hyperten pelon Keith [...] deficiency, unspec ified Keith Guerrero JR, DO 05/28/2023 E55.9 Vitamin D deficiency, unspec ified Lab - [facility] 05/28/2023 D51.9 Vitamin B12 defi ciency anemia, unspecified Keith Guerrero JR, DO 05/28/2023 D51.9 Vitamin B12 defi ciency anemia, unspecified Lab - [facility] 05/28/2023 E03.9 Hypothyroidism, unspecified Keith Guerrero JR, DO 05/28/2023 E03.9 Hypothyroidism, unspecified Lab - [facility] Plan of Treatment Future Appointment(s):* 12/24/2023 1:30 pm - Keith Guerrero JR DO at [facility] * 12/17/2023 8:45 am - Lab - [facility] at [facility] 09/17/2023 - Keith Guerrero JR, DO* I10 Essential (primary) hypertension * E78.2 Mixed hyperlipidemia * E03.9 Hypothyroidism, unspecified * D51.9 Vitamin B12 deficiency anemia, unspecified * E55.9 Vitamin D deficiency, unspecified* New Medication:* Vitamin D (Ergocalciferol) 01970 Unit - 1 by mouth weekly * [...]
[2023-10-27] MEDS ORDERED: METOCLOPRAMIDE HCL 10 MG TABLET PO SCH (06:00)
[2023-10-27] MEDS ORDERED: ceFAZolin 2000MG 2,000 MG/15 ML SYR IV SCH (06:00)
[2023-10-27] MEDS ORDERED: TRANEXAMIC ACID 1,000 MG **IV Intra-op IV SCH (06:00)
[2023-10-27] MEDS ORDERED: TRANEXAMIC ACID 1,000 MG **IV Pre-op IV SCH (06:00)
[2023-10-27] MEDS ORDERED: LR 500ML BOLUS, THEN 15ML/HR IV SCH (06:00)
[2023-10-27] MEDS ORDERED: ACETAMINOPHEN 500 MG TAB PO SCH (06:00)
[2023-10-27] MEDS ORDERED: dexAMETHasone**PF** 10 MG/ML VIAL IV SCH (06:00)
[2023-10-27] MEDS ORDERED: ROPIV 0.5% 246mg, Ketorolac 30mg, EPINEPHrine 0.5mg in NSS INFIL SCH (06:00)
[2023-10-27] MEDS ORDERED: GABAPENTIN 300 MG CAP PO SCH (06:00)
[2023-10-27] MEDS ORDERED: FAMOTIDINE 20 MG TAB PO SCH (06:00)
[2023-10-27] MEDS ORDERED: LR 60ML/HR IV SCH (06:00)
[2023-10-27] MEDS ORDERED: BUPIVACAINE 0.5 % 5 MG/1 ML PF 10ML VIAL ONE (06:23)
[2023-10-27] MEDS ORDERED: ROPIVACAINE 0.5% 5 MG/ML 30 ML VIAL ONE (06:24)
[2023-10-27] MEDS ORDERED: MIDAZOLAM HCL 1 MG/ML 2ML VIAL ONE (06:47)
[2023-10-27] MEDS ORDERED: DEXAMETHASONE SOD INJ 4 MG/ML VIAL ONE (06:47)
[2023-10-27] MEDS ORDERED: LIDOCAINE 2% 2 ML VIAL/AMP(20MG/ML) INFIL ONE (06:47)
[2023-10-27] MEDS ORDERED: PROPOFOL IV EMULSION 10 MG/ML 20 ML VIAL IV ONE (06:47)
[2023-10-27] MEDS ORDERED: ONDANSETRON INJ 2 MG/ML 2 ML VIAL ONE (06:47)
[2023-10-27] MEDS ORDERED: fentaNYL citrate PF 100 MCG/2 ML VIAL ONE ×2 (06:47→09:16)
[2023-10-27] MEDS ORDERED: ROCURONIUM BROMIDE 10 MG/ML 5 ML VIAL IV ONE (06:55)
--- NOTE | 2023-10-27 07:07 | History & Physical Bridge Note ---
Date of Service October 27, 2023 History & Physical Bridge Note I have examined the patient, reviewed the History & Physical and in the interval since the performance of the History & Physical I have noted the following changes of clinical significance: no changes noted
[2023-10-27] MEDS ORDERED: ORTHO JOINT ANESTHETIC ONE (07:08)
[2023-10-27] MEDS ORDERED: SUGAMMADEX SODIUM 200 MG/2 ML VIAL IV ONE (07:48)
[2023-10-27] MEDS ORDERED: ePHEDrine sulfate 50 MG/5 ML SYR ONE (08:01)
[2023-10-27] MEDS ORDERED: HYDROmorphone INJ 2 MG/ML SYR/VIAL IV PRN (08:40)
[2023-10-27] MEDS ORDERED: ATROPINE SULFATE 0.1 MG/ML 10ML SYR IV PRN (08:40)
[2023-10-27] MEDS ORDERED: ePHEDrine sulfate 50 MG/ML AMP IV PRN (08:40)
[2023-10-27] MEDS ORDERED: ONDANSETRON INJ 2 MG/ML 2 ML VIAL IV PRN ×2 (08:40→10:41)
[2023-10-27] MEDS ORDERED: PROMETHAZINE HCL 12.5 MG in SODIUM CHLORIDE 0.9% 50 ML IV PRN (08:40)
[2023-10-27] MEDS ORDERED: KETOROLAC 30 MG/ML VIAL ONE (09:16)
--- NOTE | 2023-10-27 09:20 | Operative Report ---
Post Operative Report Pre & Post Diagnosis Operation Date: 10/27/23 07:15 Pre-Op Diagnosis: Left Knee Osteoarthritis Post-Op Diagnosis: Left Knee Osteoarthritis I identified the patient and participated in the time-out.: Yes Procedure Operation Date: 10/27/23 07:15 Actual Procedures p Left Total Knee Arthroplasty,, Stormy and Acticoat superficial wound VAC application - Adis Holloway MD Surgeon Adis Holloway MD Data Consultant Prateek THURMAN Estimated Blood Loss 15 Findings Consistent with Post-Op Diagnosis Specimens bone cuts Drains 2 Hemovac Anesthesia Type General Regional Complications none Disposition Disposition: Recovery Room Indications 68-year-old male with severe end-stage osteoarthritis left knee failed conservative management. Patient had prior successful right knee replacement. Patient does have chronic pain syndrome on chronic pain medication due to back issues. Description of Procedure patient was taken to the operating room placed supine on the operating table and anesthetized under Regional block and general anesthesia. Exam under anesthesia demonstrated 0 through 125 degrees range of motion with a varus knee no pseudolaxity no instability. A pneumatic tourniquet was placed about the proximal left upper thigh. The left lower extremity was prepped and draped in usual sterile fashion. The leg was elevated exsanguinated with an Esmarch bandage and the pneumatic tourniquet was raised to 325mm mercury. An anterior incision was made across the left knee. The skin was incised longitudinally subcutaneous flaps were elevated and an incision was made through the medial retinaculum extending up into the mid third of the quadriceps tendon and extended down to the medial tibial tubercle. Intra-articular findings demonstrated eburnated bone medial compartment [id number] moderate patellofemoral osteoarthritis some degeneration of the ACL but intact ACL. Chronic medial meniscus tearing. The knee was exposed by excising the infrapatellar fat pad, excising the meniscal remnants and anterior cruciate ligament. PCL was released off the posterior tibia. Any inflamed synovial tissue was resected. The fat pad over the anterior femur was resected for placement of the component in that area. Aqua Mantis was utilized to coagulate bleeders throughout the procedure. The lateral synovial bands were release. The femur was exposed. The custom femoral cutting block was pinned in position. The distal femoral cutting block was applied. The distal femoral cut was made with the oscillating saw. The size 10, 4-in-1 cutting block was placed. The anterior and posterior chamfer cuts were made. The knee was extended and a subperiosteal peel lateral release was performed around the patella. The patella width was measured and width was reproduced using freehand cut technique. The 35 millimeter symmetrical patella was used. 3 drill holes are made for the pegs. The tibia was exposed. A custom tibial cutting block was positioned and drill holes were made for the cutting guide. Cutting guide was placed and the proximal cut was made with the oscillating saw. All osteophytes were resected. The lamina genetic engineer was used to assess ligamentous balance and the ligaments were balanced in extension and flexion .medial and posterior medial releases were required. The tibia was reexposed and measured for a size left G tibial component. This was externally rotated in line with the tibial tubercle and the fixation pins were drilled. The proximal tibia was fashioned with the drill and punch. The size10 MC femoral trial was inserted. The trial MC inserts were used. The 11 mm insert gave balanced ligaments through full range of motion. The patella tracked centrally. the trials were removed. The orthomix anesthetic cocktail was injected per protocol. The knee was then copiously irrigated with pulsatile lavage saline solution. The final components were cemented with Refobacin bone cement. The final components were 10 left standard CR femoral component, G left tibial component, 11 mm MC left tibial polyethylene, 35 mm all polyethylene symmetrical patella. After the cement cured The knee joint was irrigated with xperience solution. 2 drains were brought out laterally and connected to a Hemovac. The quadriceps tendon and medial retinaculum were closed with interrupted [id number] #1 Vicryl sutures. The knee was taken through a full range of motion which was 0 through 135 degrees and the repair was secure. The subcutaneous tissues were closed with 2-0 Vicryl sutures and skin was closed with vicky. A Stormy and Acticoat superficial wound VAC was applied and the patient tolerated the procedure well. Prateek THURMAN my physician ssn/ssbn assistant navigator participated as practice assistant and was an integral part in all aspects of the procedure,he assisted in soft tissue retraction, instrument management ,leg positioning, the closure, application of the wound VAC and will participate in the postoperative care of the patient. I attest to the content of the Intraoperative Record and any orders documented therein. Any exceptions are noted below.
[2023-10-27] MEDS: fentaNYL citrate PF 100 MCG/2 ML VIAL IV PRN ×4 (10:07→10:22)
--- NOTE | 2023-10-27 10:35 | XRay Report ---
LEFT KNEE 2 VIEWS History: Left total knee arthroplasty. Degenerative arthritis. Postop. FINDINGS: The patient is status post a left total knee arthroplasty. The hardware is intact. No fract ure or dislocation. Skin vicky and surgical drains are in place. There is 6 mm metallic foreign bod y within the suprapatellar soft tissues. IMPRESSION: Left total knee arthroplasty. No evidence for hardware complication. A 6 mm metallic foreign body wit hin the suprapatellar soft tissues. ACT 112: Negative or not required by law. Electronically signed by: Levi Way M.D. 10/27/2023 10:33 AM
[2023-10-27] MEDS ORDERED: bisacodyL 10 MG SUPP PR PRN (10:41)
[2023-10-27] MEDS ORDERED: MAGNESIUM HYDROXIDE SUSP 30 ML UDC PO PRN (10:41)
[2023-10-27] MEDS ORDERED: HYDROmorphone INJ 0.5 MG/0.5 ML SYR IV PRN (10:41)
[2023-10-27] MEDS ORDERED: METOCLOPRAMIDE HCL INJ 5 MG/ML 2 ML VIAL IV PRN (10:41)
[2023-10-27] MEDS ORDERED: NALOXONE HCL 0.4 MG/1 ML VIAL/CARP IV PRN (10:41)
[2023-10-27] MEDS ORDERED: TAMSULOSIN HCL 0.4 MG CAP PO PRN (10:41)
[2023-10-27] MEDS ORDERED: NORTRIPTYLINE HCL 25 MG CAP PO PRN (10:41)
[2023-10-27] MEDS: SODIUM CHLORIDE 0.9% 1,000 ML IV SCH ×2 (10:55→20:47)
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
--- NOTE | 2023-10-27 11:07 | Anesthesiology Progress Note ---
Date of Service October 27, 2023 Anesthesia Post Procedure Vital Signs Vital Signs: Temp Pulse Pulse Resp BP Pulse Ox O2 Del Method 10/27/23 10:41 36.7 C 84 16 145/72 H 98 Nasal Cannula 10/27/23 10:20 36.9 C 78 15 141/71 H 98 Nasal Cannula 10/27/23 10:10 81 15 139/83 98 Oxymask 10/27/23 10:00 84 15 119/61 96 Oxymask 10/27/23 09:50 37.0 C 72 17 98/50 L 96 Oxymask 10/27/23 05:40 36.5 C 79 20 165/83 H 96 Room Air O2 Flow Rate 10/27/23 10:41 2 10/27/23 10:20 2 10/27/23 10:10 5 10/27/23 10:00 5 10/27/23 09:50 5 10/27/23 05:40 Pain Intensity Left Knee: Pain Intensity: 6 Transfer of Care Handoff Completed per policy Notes Mental Status: alert / awake / arousable and participated in evaluation Nausea / Vomiting: adequately controlled Pain: adequately controlled Airway Patency, RR, SpO2: stable & adequate BP & HR: stable & adequate Hydration State: stable & adequate Neuraxial Anesthesia: was administered and sensory block is resolving Anesthetic Complications: no major complications apparent and Pt Satisfied with anesthetic care
--- NOTE | 2023-10-27 11:13 | Anesthesiology Progress Note ---
Date of Service October 27, 2023 Anesthesia Post Procedure Vital Signs Vital Signs: Temp Pulse Pulse Resp BP Pulse Ox O2 Del Method 10/27/23 10:41 36.7 C 84 16 145/72 H 98 Nasal Cannula 10/27/23 10:20 36.9 C 78 15 141/71 H 98 Nasal Cannula 10/27/23 10:10 81 15 139/83 98 Oxymask 10/27/23 10:00 84 15 119/61 96 Oxymask 10/27/23 09:50 37.0 C 72 17 98/50 L 96 Oxymask 10/27/23 05:40 36.5 C 79 20 165/83 H 96 Room Air O2 Flow Rate 10/27/23 10:41 2 10/27/23 10:20 2 10/27/23 10:10 5 10/27/23 10:00 5 10/27/23 09:50 5 10/27/23 05:40 Pain Intensity Left Knee: Pain Intensity: 6 Transfer of Care Handoff Completed per policy Notes Mental Status: alert / awake / arousable and participated in evaluation Patient Amnestic to Procedure: Yes Nausea / Vomiting: adequately controlled Pain: adequately controlled Airway Patency, RR, SpO2: stable & adequate BP & HR: stable & adequate Hydration State: stable & adequate Anesthetic Complications: no major complications apparent
[2023-10-27] MEDS: oxyCODONE HCL IR 5 MG TAB (IMMEDIATE RELEASE) PO PRN ×2 (13:44→18:01)
[2023-10-27] MEDS: ACETAMINOPHEN 500 MG TAB PO SCH ×2 (13:45→20:47)
[2023-10-27] MEDS: ceFAZolin 2000MG 2,000 MG/15 ML SYR IV SCH ×2 (15:21→23:44)
[2023-10-27] MEDS: oxyCODONE HCL 10 MG TABCR (OxyCONTIN) PO SCH (20:47)
[2023-10-27] MEDS: DOCUSATE SODIUM 100 MG CAP PO SCH (20:47)
[2023-10-27] MEDS ORDERED: SENNA 8.6 MG TAB PO SCH (21:00)
[2023-10-27] MEDS ORDERED: SIMVASTATIN 20 MG TAB PO SCH (21:00)
[2023-10-27] MEDS ORDERED: ZOLPIDEM TARTRATE 5 MG TAB PO PRN (21:49)
[2023-10-28] MEDS: oxyCODONE HCL IR 5 MG TAB (IMMEDIATE RELEASE) PO PRN ×3 (02:30→13:44)
[2023-10-28] MEDS: ACETAMINOPHEN 500 MG TAB PO SCH (05:30)
[2023-10-28] MEDS ORDERED: LEVOTHYROXINE SODIUM 175 MCG TABLET PO SCH (06:30)
[2023-10-28 06:33] LABS: Hematocrit (blood only) 40.5 % (42.0-52.0); Hemoglobin 13.9 g/dl (14.0-18.0); Mean Corpuscular Hemoglobin 28.5 pg (25.0-34.0); Mean Corpuscular Hgb Conc 34.3 g/dL (32.0-36.0); Mean Platelet Volume 9.7 fL (9.4-12.4); Platelet Count 184 K/uL (130-400); RDW Coefficient of Variation 13.7 % (11.5-14.5); RDW Standard Deviation 41.1 fL (36.4-46.3); Red Blood Count 4.88 M/uL (4.70-6.10); White Blood Count 13.37 K/ul (4.8-10.8)
[2023-10-28 07:10] LABS: BUN Creatinine Ratio 22.3 (10-20); Calcium 8.2 mg/dl (8.6-10.3); Creatinine Clr Calc Pharmacy 60.9 ml/min; Est GFR (African American) 59.1 ml/min; Potassium 4.2 mmol/L (3.5-5.1)
[2023-10-28] MEDS: DOCUSATE SODIUM 100 MG CAP PO SCH (08:17)
[2023-10-28] MEDS: oxyCODONE HCL 10 MG TABCR (OxyCONTIN) PO SCH (08:29)
--- NOTE | 2023-10-28 08:50 | Orthopedic Progress Note ---
Date of Service October 28, 2023 Assessment & Plan (1) Primary osteoarthritis of left knee: Plan: POD#1 left total knee arthroplasty -PT/OT -Pain management as written -DVT prophylaxis-scds, teds, xarelto 10mg daily -AM labs-hgb 13.9 from 15 preop, acute blood loss anemia due to surgical loss vs dilutional. Leukocytosis likely reactive due to surgical stress vs perioperative steroids. Patient is asymptomatic. -D/C planning-plan on d/c home with outpatient PT. Plan on discharge home today as long as pain controlled and progresses well with PT. Admission and Anticipated Discharge Date Admission Date: October 27, 2023 Subjective Patient is POD1 left TKA. Doing well this morning, pain controlled. No complaints. Denies chest pain, sob, dizziness, BENNETT, n/v/d, fever/chills. Review of Systems Review of Systems: All systems reviewed & are unremarkable except as noted in Subjective Physical Exam Physical Exam: Left knee: Dressing is c/d/i. toes mobile with good DF. Able to do SLR. no calf tenderness. Distally n/v status and sensation is grossly intact. Results & Data Vital Signs (Past 12 Hours) Vital Signs Temp Pulse Resp BP Pulse Ox O2 Del Method 10/28/23 03:03 37.1 C 79 16 155/71 H 94 Room Air 10/27/23 23:44 37.0 C 93 H 16 129/76 94 Room Air 10/27/23 20:35 Room Air Laboratory Results Lab Results 10/27/23 10/28/23 Range/Units 05:34 06:04 WBC 13.37 H (4.8-10.8) K/ul RBC 4.88 (4.70-6.10) M/uL Hgb 13.9 L (14.0-18.0) g/dl Hct 40.5 L (42.0-52.0) % MCV 83.0 (80.0-100.0) fL MCH 28.5 (25.0-34.0) pg MCHC 34.3 (32.0-36.0) g/dL RDW Std Deviation 41.1 (36.4-46.3) fL RDW Coeff of Jewel 13.7 (11.5-14.5) % Plt Count 184 (130-400) K/uL MPV 9.7 (9.4-12.4) fL Sodium 136 (136-145) mmol/L Potassium 4.2 (3.5-5.1) mmol/L Chloride 104 (98-107) mmol/L Carbon Dioxide 26 (21-32) mmol/L Anion Gap 6 (3-11) BUN 31 H (6-23) mg/dl Creatinine 1.39 (0.6-1.4) mg/dl Est Cr Clr Drug Dosing 60.9 ml/min Est GFR ( Amer) 59.1 ml/min Est GFR (Non-Af Amer) 51.0 ml/min BUN/Creatinine Ratio 22.3 H (10-20) Glucose 104 H (70-99(Fasting)) mg/dl POC Glucose 90 (70-99) mg/dl Calcium 8.2 L (8.6-10.3) mg/dl
[2023-10-28] MEDS ORDERED: amLODIPine BESYLATE 5 MG TAB PO SCH (09:00)
[2023-10-28] MEDS ORDERED: CHOLECALCIFEROL 5,000 UNITS 125 MCG TAB PO SCH (09:00)
[2023-10-28] MEDS ORDERED: CYANOCOBALAMIN (B-12) 500 MCG TABLET PO SCH (09:00)
[2023-10-28] MEDS ORDERED: PANTOprazole 40 MG TAB PO SCH (09:00)
[2023-10-28] MEDS ORDERED: METOPROLOL SUCC 25MG EXT REL TAB PO SCH (09:00)
[2023-10-28] MEDS ORDERED: RIVAROXABAN 10 MG TABLET PO SCH (09:00)
[2023-10-28] MEDS ORDERED: MULTIVITAMIN TAB PO SCH (09:00)
[2023-10-28] MEDS ORDERED: lisinopril 5 MG TAB PO SCH (09:00)
[2023-10-28] MEDS ORDERED: SODIUM CHLORIDE 0.9% 500 ML IV ONE (11:53)
[2023-10-28] MEDS ORDERED: LACTATED RINGER'S 250 ML IV ONE (11:55)
--- NOTE | 2023-10-28 12:03 | Hospitalist Progress Note ---
Date of Service October 28, 2023 Assessment & Plan (1) S/P left knee surgery: Plan: - Left total knee arthroplasty with Dr. Holloway on 10/27/23 - Perioperative antibiotics, pain control, DVT PPx per the primary team Eloisa fraser 10/28: - like vasovagal secondary to pain from drain removal. - 500 cc bolus NSS - BP have improved - no significant abnormalities on BMP this am, kidney function baseline, will recheck in AM (2) Prediabetes: Plan: Last A1c 5.9% on 09/12/2023; Normally on semaglutide; hold while inpatient Can continue to manage with T2DM diet Will defer SSI at this time (3) Hypothyroidism: Plan: Continue levothyroxine (4) Chronic back pain: Plan: Chronic; stable (5) Hypertension: Plan: Continue amlodipine, lisinopril, metoprolol (6) Chronic kidney disease, stage III (moderate): Plan: Avoid nephrotoxic agents where possible Plan Dispo: recommend continued inpatient stay for further monitoring after code evelio, likely dc tomorrow Thank you for allowing us to participate in the care of this patient, please reach out with any questions or concerns. Admission and Anticipated Discharge Date Admission Date: October 27, 2023 Subjective Patient seen during Code Evelio called for his room. He was sitting in the chair, preparing for discharge and had drain and IV removed by RN. At that time he had intense pain and started feeling hot and sweaty. Did not pass out, but felt like he was close. Did feel light headed and dizzy at that time. Per RN BP while most symptomatic was 80/60s. Placed in bed in [place] position and BPs increased. Color started to return to his face. BP improved to 117/83. 500 cc fluid bolus ordered. BS 107. Otherwise reports he was doing well. As vaso-vagal symptoms are improving he do es report pain in his right knee. Significant other in the room reports that patient does not usually tolerate pain well Review of Systems Review of Systems: All systems reviewed & are unremarkable except as noted in Subjective Physical Exam Physical Exam: General: VS as above, mild distress pale and clamy upon arrival, during the stay color return to face and patient feeling better Resp: normal respiratory effort, lungs clear to auscultation CV: RRR, no murmur, Abd: normal bowel sounds, non tender, no hepatosplenomegaly Extremities: Moves all extremities, s/p L TKA, no signs of infection. Neuro: A&O x3, Results & Data Results & Data Vital Signs (Past 12 Hours) Vital Signs Temp Pulse Resp BP Pulse Ox O2 Del Method 10/28/23 07:54 36.9 C 85 16 151/81 H 100 Room Air 10/28/23 03:03 37.1 C 79 16 155/71 H 94 Room Air Laboratory Results CBC and chemistry reviewed PG Care Time/CCT Total # of Minutes Spent Total Time Spent with Patient: Total time spent is greater than 50% in coordination of care (as documented) at patient's floor/unit and/or counseling patient: Coding Level of Care Code 15651 SUB INP/OBS CARE 3/50MIN Diagnoses S/P left knee surgery Z98.890 Prediabetes R73.03 Hypothyroidism E03.9 Chronic back pain M54.9; G89.29 Hypertension I10 Chronic kidney disease, stage III (moderate) N18.3
--- NOTE | 2023-10-29 07:14 | Discharge Summary ---
Date of Service October 29, 2023 Admission HPI Per Admitting Provider 68-year-old male with past medical history significant for GERD, hypertension, borderline diabetes, CKD, hypothyroidism who presents with ongoing left knee pain. Previously on the total knee with good relief. He has pain interfering with his daily activities. He has failed conservative measures. He like to proceed with surgical management. Patient denies headaches, sweats, fevers, chills, double vision, blurred vision, cough, sore throat, dysphagia, chest pain, sob, wheezing, n/v/d/c, numbness, tingling, fatigue, urinary symptoms, mood disorders. ROS positive for left knee pain and stiffness. Admission Exam Per Admitting Provider Constitutional: well developed and well nourished; no acute distress Eyes: PERRL, conjunctivae normal, anicteric sclerae ENMT: external ear and nose normal, oropharynx normal Neck: trachea midline, no thyromegaly Respiratory: normal respiratory effort, lungs clear to auscultation Cardiovascular: RRR, no murmur, no edema Musculoskeletal: Left knee: Varus alignment. Stable to valgus and varus stress test. Range of motion is 0 to 130 degrees. Tenderness medial joint line. Skin: no rashes, warm and dry Neurologic: patellar DTR's 2+ bilat, sensation intact Psychiatric: A+Ox3, euthymic affect Principal Diagnosis Left knee osteoarthritis Discharge Exam Left knee: Dressing is c/d/i. toes mobile with good DF. Able to do SLR. no calf tenderness. Distally n/v status and sensation is grossly intact. Discharge Data Allergies Allergy/AdvReac Type Severity Reaction Status Date / Time aspartame Allergy Severe Migraine Verified 10/27/23 05:35 atorvastatin [From Lipitor] Allergy Severe Headache Verified 10/27/23 05:35 ciprofloxacin [From Cipro] Allergy Severe GI UPSET Verified 10/27/23 05:35 sulfamethoxazole Allergy Severe Headache Verified 10/27/23 05:35 [From Bactrim] trimethoprim [From Bactrim] Allergy Severe Headache Verified 10/27/23 05:35 Consultations 10/22/23 12:18 Consult Hospitalist Routine Procedures Performed Operation Date: 10/27/23 07:15 Actual Procedures p Left Total Knee Arthroplasty - Adis Holloway MD Ordered Studies 10/27/23 05:00 US - OR guided needle placemen Routine Hospital Course (1) Primary osteoarthritis of left knee: POD#1 left total knee arthroplasty -PT/OT -Pain management as written -DVT prophylaxis-scds, teds, xarelto 10mg daily -AM labs-hgb 13.9 from 15 preop, acute blood loss anemia due to surgical loss vs dilutional. Leukocytosis likely reactive due to surgical stress vs perioperative steroids. Patient is asymptomatic. -D/C planning-plan on d/c home with outpatient PT. Plan on discharge home today as long as pain controlled and progresses well with PT. Eloisa fraser was called to patient's room secondary to vasovagal episode/near syncope triggered by pain from IV and drain removal. He received 500cc bolus of fluid. He has been feeling well since episode. Patient is adamant about d/c home today and threatened to leave AMA. Did have PT work with patient again and tolerated well with normal orthostatic vital signs. Per PT, patient safe for d/c home today. Plan on discharge home today. Lab Results 10/27/23 10/28/23 10/28/23 Range/Units 05:34 06:04 11:36 WBC 13.37 H (4.8-10.8) K/ul RBC 4.88 (4.70-6.10) M/uL Hgb 13.9 L (14.0-18.0) g/dl Hct 40.5 L (42.0-52.0) % MCV 83.0 (80.0-100.0) fL MCH 28.5 (25.0-34.0) pg MCHC 34.3 (32.0-36.0) g/dL RDW Std Deviation 41.1 (36.4-46.3) fL RDW Coeff of Jewel 13.7 (11.5-14.5) % Plt Count 184 (130-400) K/uL MPV 9.7 (9.4-12.4) fL Sodium 136 (136-145) mmol/L Potassium 4.2 (3.5-5.1) mmol/L Chloride 104 (98-107) mmol/L Carbon Dioxide 26 (21-32) mmol/L Anion Gap 6 (3-11) BUN 31 H (6-23) mg/dl Creatinine 1.39 (0.6-1.4) mg/dl Est Cr Clr Drug Dosing 60.9 ml/min Est GFR ( Amer) 59.1 ml/min Est GFR (Non-Af Amer) 51.0 ml/min BUN/Creatinine Ratio 22.3 H (10-20) Glucose 104 H (70-99(Fasting)) mg/dl POC Glucose 90 107 H (70-99) mg/dl Calcium 8.2 L (8.6-10.3) mg/dl Total Time Total Time Spent Total Time Spent (In Minutes): 20 Discharge Plan Discharge Items Patient Disposition: Home - Self-Care Reason For Visit: Left Knee Osteoarthritis Discharge Diagnosis: Left knee osteoarthritis Activity: Per Instructions section Non-emergency contact: Surgeon Call non-emergency contact if: you have any medication questions, your pain is not controlled, you have a fever, your temperature is above 101, your wound has increased redness and your wound has increased drainage Follow-up/Referrals: Keith Guerrero [Primary Care Provider] - Diet: Regular Addtl Attending Provider Instructions: ACTIVITY RECOMMENDATIONS: SELF CARE INSTRUCTIONS AFTER TOTAL KNEE REPLACEMENT A. You may need to continue a physical therapy program after discharge from the hospital. There are several options available to you. Your doctor will assist you in selecting the best one for you. 1. An out-patient facility 2 to 3 times a week for therapy or home therapy. 2. Continue working on all exercises taught to you in the hospital. Your goals should be to increase bending of your knee to 90 degrees and beyond and to fully straighten your knee. B. You may progress at your own pace from walking with a walker or crutches to a cane; then to no assistive devices. C. Make walking a part of your daily routine. Be up as much as comfortable with rest periods throughout the day. Rest with leg elevation is very important. Use the ice wrap frequently for the first 3-4 weeks. D. There are no restrictions on activities. You may ride in a car, shop, participate in web user experience strategist and all social activities. E. Wear the long elastic stockings (ANNA hose) 20 hours a day for 2 weeks after surgery. They can be removed several times a day for laundering and for a bath. F. You may shower, no tub baths until cleared by your doctor. SPECIAL CARE INSTRUCTIONS: VERY IMPORTANT TO READ AND REVIEW A. There are a few signs you need to watch for after you are home. Call [facility] if you notice any of the followin. Increased severe knee pain. Some pain is expected especially when you exercise. 2. Increased swelling in your leg or knee; pain or swelling of the calf muscle in either lower leg. 3. Any fluid drainage from the incision. 4. Shortness of breath or chest pain. B. Please call [facility] at if you have any concerns or questions about your operation or recovery. The doctor or his nurse will return your call promptly. C. You must take antibiotics before dental work, bladder, bowel or other surgery. Your doctor will provide you with a permanent care to carry describing this precaution. IMPORTANT: * REMEMBER TO TAKE ASPIRIN, 81 MG, TWICE DAILY FOR 4 WEEKS UNLESS OTHERWISE DIRECTED. THIS IS YOUR BLOOD THINNER. * HIGH RISK PATIENTS MAY BE PRESCRIBED A STRONGER BLOOD THINNER. THIS WILL BE PROVIDED AT DISCHARGE. * CALL IF INCREASED PAIN, REDNESS, DRAINAGE OR FEVER GREATER THAT 101. * WEAR ANNA HOSE 20 HOURS PER DAY FOR 2 WEEKS. There is a large suction dressing covering your incision. This will help pull any excess drainage from the wound and allow your incision to heal properly. You may shower with this if you can keep the unit outside of the shower. If any bleeding or leakage is noted please call your doctor's office. This will remain on your incision for 7 days and then should be removed. This can be done yourself or by the home nursing staff if applicable. The entire unit is disposable once removed. Once removed, keep incision clean and dry. If redness or drainage is noted, please call your surgeon. IF INCISION IS LEAKING THROUGH DRESSING, CALL THE OFFICE . FOLLOW UP VISIT: If appointment is not already scheduled: Please call [facility] to make a follow-up appointment for 2 weeks after your surgery at . Stand-Alone Forms: [facility], Smoking Cessation Medications and DC Order Prescriptions: New acetaminophen [Tylenol Extra Strength] 500 mg Tablet 1,000 mg PO Q8 Qty: 60 0RF oxycodone [OxyContin] 10 mg Tablet,Oral Only,Ext.Rel.12 Hr 10 mg PO Q12 PRN (Reason: pain) Qty: 10 0RF Rx Instructions: Ongoing therapy, Dr. Holloway supervising Xarelto 10 mg Tablet 10 mg PO DAILY Qty: 30 0RF cefadroxil 500 mg capsule 500 mg PO BID Qty: 28 0RF oxycodone 5 mg tablet 5 - 10 mg PO .Q4h-6h MDD 6 PRN (Reason: pain) Qty: 30 0RF Rx Instructions: Ongoing therapy, Dr. Holloway supervising Continued amlodipine 2.5 mg tablet 2.5 mg PO QAM Qty: 90 3RF simvastatin 20 mg tablet 20 mg PO HS tadalafil [Cialis] 10 mg tablet 10 mg PO Q36H PRN (Reason: sexual activity) pantoprazole 40 mg tablet,delayed release (DR/EC) 40 mg PO QAM mecobalamin (vitamin B12) 1,000 mcg tablet,disintegrating 1,000 mcg SL QAM testosterone cypionate 300 mg IM .Q2W metoprolol succinate 25 mg tablet extended release 24 hr 37.5 mg PO QAM cholecalciferol (vitamin D3) 125 mcg (5,000 unit) capsule 5,000 units PO QAM nortriptyline [Pamelor] 25 mg capsule See Rx Instructions PO HS PRN (Reason: neuropathy) Rx Instructions: 2-4 capsules orally at bedtime PRN; levothyroxine 175 mcg tablet 175 mcg PO QAM Ozempic 0.25 mg or 0.5 mg(2 mg/1.5 mL) pen injector 0.5 mg subcut .COMPLEX Rx Instructions: 0.5 mg subcutaneously Weekly; naloxone 4 mg/actuation spray,non-aerosol 1 spray intranasal Q3M PRN (Reason: opioid overdose) Qty: 2 0RF lisinopril 5 mg tablet 5 mg PO BID Discontinued oxycodone 10 mg Tablet 10 mg PO Q4H Discharge Orders: Discharge Order (Routine); Ordered 10/28/23 Ordered By: Prateek Rosado/Other Patient Handouts: DVT Post Op Prevention Admission Data Admit Date/Time: 10/27/23 09:53 Attending Provider: Adis Holloway Admit Provider: Adis Holloway Primary Care Provider: Keith Guerrero Other Providers: Zander Green Other Interventions: Discharge Summary Assessment (RN) Last Done: 10/28/23 10:56
== END 2023-10-28 15:28 | disposition home or self-care (01) ==
LOC: ASU 05:14 → 3E 05:14